=== PATIENT | male | born 1960 | race Caucasian/White ===

== ENCOUNTER 2020-10-11 13:24 | Observation (INO) | payer MEDICARE ==
[2020-10-11] MEDS ORDERED: Sodium Chloride 0.9% 1,000 ML IV ONE (13:43)
[2020-10-11] MEDS ORDERED: Pantoprazole 40 MG Vial IVPUSH ONE (13:43)
[2020-10-11 14:14] LABS: CHLORIDE,CL 88 mmol/L (98-107); SODIUM,NA 131 mmol/L (136-145)
[2020-10-11 14:17] LABS: ANION GAP 10.4 mmol/L (5-15)
--- NOTE | 2020-10-11 14:36 | CR ---
[id number] RAD/RAD Chest PA And Lateral EXAM: FRONTAL AND LATERAL CHEST INDICATION: CHEST PAIN. COMPARISON: June 19, 2018. DISCUSSION: Moderate consolidation throughout the right lung is new relative to June 19, 2018. Small right pleural effusion. COPD. No left-sided infiltrates are identified. Normal heart size. IMPRESSION: 1. Development of moderate infiltrates throughout right lung. Frantz Bettencourt MD 10/11/20 [id number] Thank you for allowing us to participate in the care of your patient.
[2020-10-11] MEDS ORDERED: Iopamidol 612 MG/ML 100 ML Bottle IVPUSH ONE (14:55)
--- NOTE | 2020-10-11 16:11 | CT ---
[id number] CT/CTA Chest EXAM: CT ANGIOGRAM CHEST INDICATION: SHORTNESS OF BREATH, INCREASED OXYGEN NEED. COMPARISON: June 19, 2018. DISCUSSION: The pulmonary arteries are normal in appearance with no emboli identified. Underlying COPD with bronchitis and apical predominant moderate emphysema. Areas of septal thickening, consolidation and groundglass opacification throughout the right lung which are most prominent in the right middle and lower lobes. Areas of rounded/nodular consolidation versus pulmonary nodules in the apical right lower lobe measuring up to 29 x 27 mm and in the right upper lobe measuring up to 27 and 23 mm. Continued follow-up is suggested to further evaluate for neoplasm. Normal heart size. No pleural or pericardial effusions. No thoracic adenopathy. Atherosclerotic plaque is noted in the aorta and its major branches including the coronary arteries. These changes result in significant stenosis IMPRESSION: 1. Negative for pulmonary embolism. 2. Consolidation, septal thickening and groundglass opacification scattered throughout the right lung, favor infectious or inflammatory process. There are scattered nodular airspace opacities which could also be infectious/inflammatory or neoplastic. A follow-up examination is suggested in 6-8 weeks for further clarification. Frantz Bettencourt MD 10/11/20 [id number] Thank you for allowing us to participate in the care of your patient.
[2020-10-11] MEDS ORDERED: Piperacillin/Tazobactam 4.5 GM in Sodium Chloride 0.9% 100 ML IV ONE (16:14)
[2020-10-11 16:19] LABS: BICARBONATE,ARTERIAL 30 mmol/L (21-28); PCO2 ARTERIAL 43 mmHG (35-48)
--- NOTE | 2020-10-11 16:19 | CT ---
[id number] CT/CT Abdomen Pelvis W IV EXAM: ABDOMEN AND PELVIS CT WITH CONTRAST INDICATION: ABDOMINAL PAIN, GI BLEEDING, ON COUMADIN. COMPARISON: March 12, 2018. DISCUSSION: Airspace consolidation in the right lung base as detailed on a dedicated CT angiogram of the chest. Small bilateral inguinal hernias containing only fat on the left and a segment of unobstructed bowel on the right. There are numerous diverticula of the colon without evidence of diverticulitis. Extensive atherosclerotic plaque in the aorta and its major branches evidence of previous aortobifemoral bypass. The distal aspect of the left bypass limb is dilated and measures up to 37 mm and increase from the previous of 25 mm. The abdominal aorta measures up to 53 mm in diameter and is similar to the prior study. The liver, gallbladder, spleen, pancreas, adrenal glands, kidneys, small bowel, and the appendix are normal in appearance. No adenopathy, free air free fluid. The osseous structures are unremarkable. IMPRESSION: 1. 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 Frantz Bettencourt MD 10/11/20 [id number] Thank you for allowing us to participate in the care of your patient.
[2020-10-11 16:20] LABS: BASE EXCESS ARTERIAL 6 mmol/L ((-2)-(+3))
[2020-10-11 16:21] LABS: PO2 ARTERIAL 42 mmHG (83-108)
--- NOTE | 2020-10-11 17:21 | EDM.PDOC ---
ED HPI GENERAL MEDICAL PROBLEM - General Chief Complaint: Respiratory Problem Stated Complaint: SOB Time Seen by Provider: 10/11/20 13:46 Source of Information: Reports: Patient, EMS History Limitations: Reports: No Limitations - History of Present Illness INITIAL COMMENTS - FREE TEXT/NARRATIVE: Patient presents to the ED for increasing shortness of breath, for the last two days. He is oxygen dependent and did have a bout of chest pain yesterday but gone now. He has been coughing up blood tinged sputum for about a week. Is on coumadin and plavix. He noted black tarry stools for the last 1-2 days and was told to come in. No abdominal pain. Shortness of breath like usual, possibly a slight bit worse. Eating and drinking well. no fevers. no concerns for covid. Has some Gi bleeding a few weeks ago, never had it evaluated. - Related Data Allergies Allergy/AdvReac Type Severity Reaction Status Date / Time No Known Allergies Allergy Verified 10/11/20 14:46 Home Meds: Home Meds Warfarin Sodium [Jantoven] 1 tab PO ASDIRECTED 03/11/18 [History] Magnesium Oxide 500 mg PO DAILY 04/03/18 [History] Nitroglycerin [Nitrostat] 0.4 mg SL ASDIRECTED PRN 04/03/18 [History] Potassium Chloride [K-Tab] 10 meq PO DAILY 04/03/18 [History] atorvaSTATin Calcium [Lipitor] 40 mg PO DAILY 04/03/18 [History] Acetaminophen 650 mg PO Q4H PRN 10/11/20 [History] Albuterol/Ipratropium [Combivent Respimat] 1 puff IH QID 10/11/20 [History] Budesonide [Pulmicort] 0.5 mg IH BID 10/11/20 [History] Bumetanide [Bumex] 1 mg PO DAILY 10/11/20 [History] Cholecalciferol (Vitamin D3) [Vitamin D3] 1,000 unit PO DAILY 10/11/20 [History] Clopidogrel Bisulfate [Plavix] 75 mg PO DAILY 10/11/20 [History] Pantoprazole Sodium [Protonix] 40 mg PO DAILY 10/11/20 [History] carvediloL [Coreg] 3.125 mg PO BID 10/11/20 [History] Social & Family History - Tobacco Use Tobacco Use Status *Q: Former Tobacco User - Alcohol Use Alcohol Use History: Yes Alcohol Use in Last Twelve Months: Yes Alcohol Use Frequency: Daily ED ROS GENERAL - Review of Systems Review Of Systems: See Below Constitutional: Reports: Malaise, Fatigue HEENT: Reports: No Symptoms. Denies: Eye Pain, Sinus Problem, Vertigo Respiratory: Reports: Shortness of Breath, Cough, Sputum, Hemoptysis Cardiovascular: Reports: Chest Pain (yesterday) Endocrine: Reports: No Symptoms GI/Abdominal: Reports: Black Stool, Decreased Appetite. Denies: Abdominal Pain, Nausea, Vomiting : Reports: No Symptoms Musculoskeletal: Reports: No Symptoms Skin: Reports: No Symptoms Neurological: Reports: No Symptoms Psychiatric: Reports: No Symptoms Hematologic/Lymphatic: Reports: No Symptoms ED EXAM, GENERAL - Physical Exam Exam: See Below Exam Limited By: No Limitations General Appearance: Alert, Mild Distress (appears ill, pale) Eye Exam: Bilateral Eye: EOMI, PERRL Ears: Normal External Exam Nose: Normal Inspection, Normal Mucosa Throat/Mouth: Normal Inspection, Normal Lips, Normal Oropharynx, Normal Voice Head: Atraumatic Neck: Normal Inspection, Supple Respiratory/Chest: Respiratory Distress, Decreased Breath Sounds, Crackles (right), Accessory Muscle Use, Prolonged Expiration Cardiovascular: Regular Rate, Rhythm, No Murmur, Systolic Murmur GI/Abdominal: Normal Bowel Sounds, Soft, Non-Tender, Other (attempt for occult stool, no developer in the hospital) Extremities: Normal Inspection, Normal Range of Motion Neurological: Alert, Oriented, CN II-XII Intact, Normal Cognition, No Motor/Sensory Deficits Psychiatric: Normal Affect #1 Interpretation EKG Date: 10/11/20 Time: 13:40 Rhythm: NSR [place]: Normal QRS: RBBB ST-T: Normal QT: Normal Course - Vital Signs Last Recorded V/S: Last Vital Signs Temp 37.1 C 10/11/20 13:30 Pulse 86 10/11/20 17:26 Resp 16 10/11/20 17:26 BP 128/80 10/11/20 17:26 Pulse Ox 88 L 10/11/20 17:26 - Orders/Labs/Meds Orders: Active Orders 24 hr Category Date Time Status Admission Status [Patient Status] [ADT] Routine ADT 10/11/20 17:24 Active Cardiac Monitoring [RC] . DIRECTED Care 10/11/20 13:43 Active EKG 12 Lead [EKG Documentation Completion] [RC] STAT Care 10/11/20 13:42 Active CULTURE BLOOD [BC] Stat Lab 10/11/20 17:02 Results CULTURE BLOOD [BC] Stat Lab 10/11/20 17:06 Received LACTIC ACID [CHEM] Stat Lab 10/11/20 17:02 Received Blood Culture x2 Reflex Set [OM.PC] Stat Oth 10/11/20 16:14 Ordered Labs: Laboratory Tests 10/11/20 10/11/20 10/11/20 Range/Units 13:55 13:55 13:55 WBC 8.8 (4.0-10.0) x10^3/uL RBC 3.07 L (4.5-6.0) x10^6/uL Hgb 9.1 L D (14.0-18.0) g/dL Hct 27.0 L (40.0-52.0) % MCV 87.9 D (78.0-93.0) fL MCH 29.6 (26.0-32.0) pg MCHC 33.7 (32.0-36.0) g/dL RDW Coeff of Neel 14.9 (10.0-15.0) % Plt Count 271 D (130-400) x10^3/uL Add Manual Diff Yes Neutrophils % (Manual) 84 H (50-80) % Lymphocytes % (Manual) 2 L (25-50) % Reactive Lymphs % 1 H (0) % Monocytes % (Manual) 11 (2-11) % Eosinophils % (Manual) 1 (0-4) % Basophils % (Manual) 1 (0-1) % Platelet Estimate Adequate Polychromasia Rare ABG pH (7.35-7.45) pH ABG pCO2 (35-48) mmHG ABG pO2 (83-108) mmHG ABG HCO3 (21-28) mmol/L ABG Total CO2 (22-29) mmol/L ABG O2 Content (94-98) % ABG Base Excess ((-2)-(+3)) mmol/L FiO2 Sodium 131 L (136-145) mmol/L Potassium 3.4 L (3.5-5.1) mmol/L Chloride 88 L (98-107) mmol/L Carbon Dioxide 36 H (21-32) mmol/L Anion Gap 10.4 (5-15) mmol/L BUN 14 D (7-18) mg/dL Creatinine 1.1 (0.70-1.30) mg/dL Est Cr Clr Drug Dosing TNP Estimated GFR (MDRD) > 60 Glucose 104 H (70-99) mg/dL Calcium 8.7 (8.5-10.1) mg/dL Troponin I High Sens 8 (<=76) ng/L SARS CoV-2 RNA Rapid HERBER (NEGATIVE) 10/11/20 10/11/20 Range/Units 15:09 16:36 WBC (4.0-10.0) x10^3/uL RBC (4.5-6.0) x10^6/uL Hgb (14.0-18.0) g/dL Hct (40.0-52.0) % MCV (78.0-93.0) fL MCH (26.0-32.0) pg MCHC (32.0-36.0) g/dL RDW Coeff of Neel (10.0-15.0) % Plt Count (130-400) x10^3/uL Add Manual Diff Neutrophils % (Manual) (50-80) % Lymphocytes % (Manual) (25-50) % Reactive Lymphs % (0) % Monocytes % (Manual) (2-11) % Eosinophils % (Manual) (0-4) % Basophils % (Manual) (0-1) % Platelet Estimate Polychromasia ABG pH 7.45 (7.35-7.45) pH ABG pCO2 43 (35-48) mmHG ABG pO2 42 L* (83-108) mmHG ABG HCO3 30 H (21-28) mmol/L ABG Total CO2 30 H (22-29) mmol/L ABG O2 Content 79 L (94-98) % ABG Base Excess 6 H ((-2)-(+3)) mmol/L FiO2 0.36 Sodium (136-145) mmol/L Potassium (3.5-5.1) mmol/L Chloride (98-107) mmol/L Carbon Dioxide (21-32) mmol/L Anion Gap (5-15) mmol/L BUN (7-18) mg/dL Creatinine (0.70-1.30) mg/dL Est Cr Clr Drug Dosing Estimated GFR (MDRD) Glucose (70-99) mg/dL Calcium (8.5-10.1) mg/dL Troponin I High Sens (<=76) ng/L SARS CoV-2 RNA Rapid HERBER Negative (NEGATIVE) Labs done at [facility] today include an INR of 2.7, urine with trace protein. otherwise negative Meds: Medications Discontinued Medications Generic Name Dose Route Start Last Admin Trade Name Freq PRN Reason Stop Dose Admin Sodium Chloride 1,000 mls @ 999 mls/hr 10/11/20 13:43 10/11/20 14:11 Normal Saline IV 10/11/20 14:43 999 mls/hr ONETIME ONE Administration Piperacillin Sod/Tazobactam 100 mls @ 200 mls/hr 10/11/20 16:14 10/11/20 17:14 Sod 4.5 gm/ Sodium Chloride IV 10/11/20 16:43 200 mls/hr STAT ONE Administration Iopamidol 100 ml 10/11/20 14:55 10/11/20 15:00 Iopamidol 612 Mg/Ml 100 Ml Bottle IVPUSH 10/11/20 14:56 100 ml ONETIME ONE Administration Pantoprazole Sodium 80 mg 10/11/20 13:43 10/11/20 14:11 Pantoprazole 40 Mg Vial IVPUSH 10/11/20 13:44 80 mg ONETIME ONE Administration - Radiology Interpretation Free Text/Narrative:: chest x-raywith moderate infiltrates right lung. CTA chest without pulmonary embolism, but with consolidation, septal thickening and groundglass opacifications throughout the right lung. Follow up in 6-8 weeks advised to rule of malignant process. interpreted by radiology - Re-Assessments/Exams Free Text/Narrative Re-Assessment/Exam: Patient O2 continues to be low per nursing. No change with non breather. sats of 60%, ABG ordered, PAo2 low on ABG, now noted no oxygen on for the patient. added 5lpm and is doing better, increased work of breathing. blood cultures x 2, covid, labs, chest x-ray, abdominal ct with contrast. No bleeding in the ED. Protonix 80 mg IVp, zosyn ordered for antibiotics after cultures. Was given a liter of IV fluids. 10/11/20 17:41 Patient has not had any bloody or black stools. Discussed bipap, doing ok. Ct of chest reveals right sided pneumonia. NO acute abdominal process. CAlled [facility] for transfer due to blood thinner x 2, gi bleeding and pneumonia. They do not have beds today, ask to hold him overnight. Does not want to go to [facility]. Will start protonix drip, continue antibiotics and admit for observation. Departure - Departure Time of Disposition: 17:22 Disposition: Refer to Observation Clinical Impression: Pneumonia, GI bleeding Respiratory failure Qualifiers: Chronicity: acute Respiratory failure complication: hypoxia and hypercapnia Qualified Code(s): J96.01 - Acute respiratory failure with hypoxia - Discharge Information *PRESCRIPTION DRUG MONITORING PROGRAM REVIEWED*: Not Applicable *COPY OF PRESCRIPTION DRUG MONITORING REPORT IN PATIENT BOBBY: Not Applicable Referrals: Palma Benjamin MD [Primary Care Provider] - Forms: ED Department Discharge Additional Instructions: Use this visit as H & P for admission Sepsis Event Note (ED) - Evaluation Sepsis Screening Result: No Definite Risk - Focused Exam Vital Signs: Vital Signs Temp Pulse Resp BP Pulse Ox 10/11/20 17:26 86 16 128/80 88 L 10/11/20 16:45 98 18 129/69 87 L 10/11/20 16:00 98 18 143/72 H 92 L 10/11/20 15:25 95 20 128/78 87 L 10/11/20 14:50 98 20 143/75 H 90 L 10/11/20 14:05 90 20 142/72 H 89 L 10/11/20 13:30 37.1 C 89 40 H 127/78 91 L - My Orders Last 24 Hours: My Active Orders 10/11/20 13:42 EKG 12 Lead [EKG Documentation Completion] [RC] STAT 10/11/20 13:43 Cardiac Monitoring [RC] . DIRECTED 10/11/20 16:14 Blood Culture x2 Reflex Set [OM.PC] Stat 10/11/20 17:02 CULTURE BLOOD [BC] Stat LACTIC ACID [CHEM] Stat 10/11/20 17:06 CULTURE BLOOD [BC] Stat 10/11/20 17:24 Admission Status [Patient Status] [ADT] Routine - Assessment/Plan Last 24 Hours: My Active Orders 10/11/20 13:42 EKG 12 Lead [EKG Documentation Completion] [RC] STAT 10/11/20 13:43 Cardiac Monitoring [RC] . DIRECTED 10/11/20 16:14 Blood Culture x2 Reflex Set [OM.PC] Stat 10/11/20 17:02 CULTURE BLOOD [BC] Stat LACTIC ACID [CHEM] Stat 10/11/20 17:06 CULTURE BLOOD [BC] Stat 10/11/20 17:24 Admission Status [Patient Status] [ADT] Routine
[2020-10-11] MEDS ORDERED: Docusate Sodium 100 MG Cap PO PRN (18:13)
[2020-10-11] MEDS ORDERED: Ondansetron 4 MG Tab.DIS PO PRN (18:13)
[2020-10-11] MEDS ORDERED: Acetaminophen/HYDROcodone 325-5 MG Tab PO PRN (18:13)
[2020-10-11] MEDS ORDERED: Piperacillin/Tazobactam 4.5 GM in Sodium Chloride 0.9% 100 ML IV SCH (18:30)
[2020-10-11] MEDS ORDERED: Pantoprazole 80 MG in Sodium Chloride 0.9% 100 ML IV SCH (18:30)
[2020-10-11] MEDS: Acetaminophen 325 MG Tab PO PRN (19:15)
[2020-10-11] MEDS: Carvedilol 3.125 MG Tab PO SCH (19:16)
[2020-10-11] MEDS: Budesonide 0.5 MG/2 ML Neb Susp INH SCH ×2 (19:17→19:19)
[2020-10-11] MEDS: Pantoprazole 40 MG in Sodium Chloride 0.9% 100 ML IV SCH (19:27)
[2020-10-11] MEDS: Albuterol 0.083% 2.5 MG/3 ML Neb Soln NEB PRN (22:36)
[2020-10-12] MEDS: Piperacillin/Tazobactam 3.375 GM in Sodium Chloride 0.9% 100 ML IV SCH ×4 (00:02→23:46)
[2020-10-12] MEDS: Pantoprazole 40 MG in Sodium Chloride 0.9% 100 ML IV SCH ×4 (00:30→16:05)
[2020-10-12] MEDS: Albuterol 0.083% 2.5 MG/3 ML Neb Soln NEB PRN ×2 (02:06→10:28)
[2020-10-12] MEDS: Budesonide 0.5 MG/2 ML Neb Susp INH SCH ×2 (06:16→19:37)
[2020-10-12 07:09] LABS: PCO2 ARTERIAL 53 mmHG (35-48)
[2020-10-12 07:10] LABS: BASE EXCESS ARTERIAL 8 mmol/L ((-2)-(+3)); BICARBONATE,ARTERIAL 33 mmol/L (21-28); PO2 ARTERIAL 56 mmHG (83-108)
[2020-10-12 07:17] LABS: CHLORIDE,CL 93 mmol/L (98-107); SODIUM,NA 134 mmol/L (136-145)
[2020-10-12 07:19] LABS: ANION GAP 10.2 mmol/L (5-15)
[2020-10-12] MEDS ORDERED: Sodium Chloride 0.9% with KCl 1,000 ML IV SCH (08:00)
[2020-10-12] MEDS: Carvedilol 3.125 MG Tab PO SCH ×2 (08:36→19:37)
[2020-10-12] MEDS: Magnesium Oxide 400 MG Tab PO SCH (08:37)
[2020-10-12] MEDS: Potassium Chloride 10 MEQ Tab.ER PO SCH (08:37)
[2020-10-12] MEDS: atorvaSTATin 40 MG Tab PO SCH (08:37)
--- NOTE | 2020-10-12 08:49 | PCM.PN ---
- General Info Date of Service: 10/12/20 Admission Dx/Problem (Free Text): right sided pneumonia, gi bleeding on blood thinners, hypoxia acute on chronic Subjective Update: Patient is up eating, continues to have increased oxygen need, Feeling a bit better. Continues with blood in the sputum. Doing his nebulizers. No bowel movement since prior to arrival. No pain. Thinks he is feeling a little better. Functional Status: Reports: Pain Controlled, Tolerating Diet, Ambulating, Incentive Spirometry - Review of Systems General: Reports: Fatigue HEENT: Reports: No Symptoms Pulmonary: Reports: Shortness of Breath, Cough, Sputum, Hemoptysis (unchanged) Cardiovascular: Reports: Dyspnea on Exertion Gastrointestinal: Reports: No Symptoms. Denies: Diarrhea, Hematochezia, Nausea, Vomiting Genitourinary: Reports: No Symptoms Musculoskeletal: Reports: No Symptoms Skin: Reports: No Symptoms Neurological: Reports: No Symptoms - Patient Data Vitals - Most Recent: Last Vital Signs Temp 36.4 C 10/12/20 05:25 Pulse 83 10/12/20 08:36 Resp 21 H 10/12/20 05:25 BP 137/77 10/12/20 08:36 Pulse Ox 95 10/12/20 05:25 Weight - Most Recent: 70.8 kg I&O - Last 24 Hours: Intake & Output 10/11/20 10/12/20 10/12/20 22:59 06:59 14:59 Intake Total 300 Balance 300 Lab Results Last 24 Hours: Laboratory Results - last 24 hr 10/11/20 10/11/20 10/11/20 Range/Units 13:55 13:55 13:55 WBC 8.8 (4.0-10.0) x10^3/uL RBC 3.07 L (4.5-6.0) x10^6/uL Hgb 9.1 L D (14.0-18.0) g/dL Hct 27.0 L (40.0-52.0) % MCV 87.9 D (78.0-93.0) fL MCH 29.6 (26.0-32.0) pg MCHC 33.7 (32.0-36.0) g/dL RDW Coeff of Neel 14.9 (10.0-15.0) % Plt Count 271 D (130-400) x10^3/uL Neut % (Auto) (50.0-80.0) % Lymph % (Auto) (25.0-50.0) % Graham % (Auto) (2.0-11.0) % Eos % (Auto) (0.0-4.0) % Baso % (Auto) (0.2-1.2) % Add Manual Diff Yes Neutrophils % (Manual) 84 H (50-80) % Lymphocytes % (Manual) 2 L (25-50) % Reactive Lymphs % 1 H (0) % Monocytes % (Manual) 11 (2-11) % Eosinophils % (Manual) 1 (0-4) % Basophils % (Manual) 1 (0-1) % Platelet Estimate Adequate Polychromasia Rare ABG pH (7.35-7.45) pH ABG pCO2 (35-48) mmHG ABG pO2 (83-108) mmHG ABG HCO3 (21-28) mmol/L ABG Total CO2 (22-29) mmol/L ABG O2 Content (94-98) % ABG Base Excess ((-2)-(+3)) mmol/L FiO2 Sodium 131 L (136-145) mmol/L Potassium 3.4 L (3.5-5.1) mmol/L Chloride 88 L (98-107) mmol/L Carbon Dioxide 36 H (21-32) mmol/L Anion Gap 10.4 (5-15) mmol/L BUN 14 D (7-18) mg/dL Creatinine 1.1 (0.70-1.30) mg/dL Est Cr Clr Drug Dosing TNP Estimated GFR (MDRD) > 60 Glucose 104 H (70-99) mg/dL Lactic Acid (0.4-2.0) mmol/L Calcium 8.7 (8.5-10.1) mg/dL Troponin I High Sens 8 (<=76) ng/L SARS CoV-2 RNA Rapid HERBER (NEGATIVE) 10/11/20 10/11/20 10/11/20 Range/Units 15:09 16:36 17:02 WBC (4.0-10.0) x10^3/uL RBC (4.5-6.0) x10^6/uL Hgb (14.0-18.0) g/dL Hct (40.0-52.0) % MCV (78.0-93.0) fL MCH (26.0-32.0) pg MCHC (32.0-36.0) g/dL RDW Coeff of Neel (10.0-15.0) % Plt Count (130-400) x10^3/uL Neut % (Auto) (50.0-80.0) % Lymph % (Auto) (25.0-50.0) % Graham % (Auto) (2.0-11.0) % Eos % (Auto) (0.0-4.0) % Baso % (Auto) (0.2-1.2) % Add Manual Diff Neutrophils % (Manual) (50-80) % Lymphocytes % (Manual) (25-50) % Reactive Lymphs % (0) % Monocytes % (Manual) (2-11) % Eosinophils % (Manual) (0-4) % Basophils % (Manual) (0-1) % Platelet Estimate Polychromasia ABG pH 7.45 (7.35-7.45) pH ABG pCO2 43 (35-48) mmHG ABG pO2 42 L* (83-108) mmHG ABG HCO3 30 H (21-28) mmol/L ABG Total CO2 30 H (22-29) mmol/L ABG O2 Content 79 L (94-98) % ABG Base Excess 6 H ((-2)-(+3)) mmol/L FiO2 0.36 Sodium (136-145) mmol/L Potassium (3.5-5.1) mmol/L Chloride (98-107) mmol/L Carbon Dioxide (21-32) mmol/L Anion Gap (5-15) mmol/L BUN (7-18) mg/dL Creatinine (0.70-1.30) mg/dL Est Cr Clr Drug Dosing Estimated GFR (MDRD) Glucose (70-99) mg/dL Lactic Acid 2.0 (0.4-2.0) mmol/L Calcium (8.5-10.1) mg/dL Troponin I High Sens (<=76) ng/L SARS CoV-2 RNA Rapid HERBER Negative (NEGATIVE) 10/12/20 10/12/20 10/12/20 Range/Units 06:45 06:45 06:50 WBC 7.7 (4.0-10.0) x10^3/uL RBC 2.79 L (4.5-6.0) x10^6/uL Hgb 8.3 L (14.0-18.0) g/dL Hct 25.4 L (40.0-52.0) % MCV 91.0 D (78.0-93.0) fL MCH 29.7 (26.0-32.0) pg MCHC 32.7 (32.0-36.0) g/dL RDW Coeff of Neel 15.0 (10.0-15.0) % Plt Count 265 (130-400) x10^3/uL Neut % (Auto) 74.1 (50.0-80.0) % Lymph % (Auto) 11.7 L (25.0-50.0) % Graham % (Auto) 10.4 (2.0-11.0) % Eos % (Auto) 1.6 (0.0-4.0) % Baso % (Auto) 2.2 H (0.2-1.2) % Add Manual Diff Neutrophils % (Manual) (50-80) % Lymphocytes % (Manual) (25-50) % Reactive Lymphs % (0) % Monocytes % (Manual) (2-11) % Eosinophils % (Manual) (0-4) % Basophils % (Manual) (0-1) % Platelet Estimate Polychromasia ABG pH 7.40 (7.35-7.45) pH ABG pCO2 53 H (35-48) mmHG ABG pO2 56 L* (83-108) mmHG ABG HCO3 33 H (21-28) mmol/L ABG Total CO2 (22-29) mmol/L ABG O2 Content 88 L (94-98) % ABG Base Excess 8 H ((-2)-(+3)) mmol/L FiO2 30.00 Sodium 134 L (136-145) mmol/L Potassium 3.2 L (3.5-5.1) mmol/L Chloride 93 L (98-107) mmol/L Carbon Dioxide 34 H (21-32) mmol/L Anion Gap 10.2 (5-15) mmol/L BUN 13 (7-18) mg/dL Creatinine 1.2 (0.70-1.30) mg/dL Est Cr Clr Drug Dosing 64.74 Estimated GFR (MDRD) > 60 Glucose 116 H (70-99) mg/dL Lactic Acid (0.4-2.0) mmol/L Calcium 8.3 L (8.5-10.1) mg/dL Troponin I High Sens (<=76) ng/L SARS CoV-2 RNA Rapid HERBER (NEGATIVE) [facility] Results Last 24 Hours: Microbiology 10/11/20 17:02 Anaerobic Blood Culture - Final Blood - Venous 10/11/20 14:25 Gram Stain - Final Sputum - Expectorated Sputum Culture - Final Med Orders - Current: Current Medications Acetaminophen (Acetaminophen 325 Mg Tab) 650 mg PO Q4H PRN PRN Reason: Pain (Mild 1-3)/fever Last Admin: 10/11/20 19:15 Dose: 650 mg Documented by: Hydrocodone Bitart/Acetaminophen (Acetaminophen/Hydrocodone 325-5 Mg Tab) 1 tab PO Q4H PRN PRN Reason: Pain (moderate 4-6) Albuterol (Albuterol 0.083% 2.5 Mg/3 Ml Neb Soln) 2.5 mg NEB Q2H PRN PRN Reason: Dyspnea Last Admin: 10/12/20 02:06 Dose: 2.5 mg Documented by: Albuterol/Ipratropium (Albuterol/Ipratropium 3.0-0.5 Mg/3 Ml Neb Soln) 3 ml NEB Q4H PRN PRN Reason: dyspnea/wheezing Atorvastatin Calcium (Atorvastatin 40 Mg Tab) 40 mg PO DAILY [facility] Last Admin: 10/12/20 08:37 Dose: 40 mg Documented by: Benzonatate (Benzonatate 100 Mg Cap) 100 mg PO TID PRN PRN Reason: Cough Last Admin: 10/12/20 00:00 Dose: 100 mg Documented by: Budesonide (Budesonide 0.5 Mg/2 Ml Neb Susp) 0.5 mg INH BIDRT [facility] Last Admin: 10/12/20 06:16 Dose: 0.5 mg Documented by: Carvedilol (Carvedilol 3.125 Mg Tab) 3.125 mg PO BID [facility] Last Admin: 10/12/20 08:36 Dose: 3.125 mg Documented by: Docusate Sodium (Docusate Sodium 100 Mg Cap) 100 mg PO BID PRN PRN Reason: Constipation Piperacillin Sod/Tazobactam (Sod 3.375 gm/ Sodium Chloride) 100 mls @ 25 mls/hr IV Q8H [facility] Last Admin: 10/12/20 08:37 Dose: 25 mls/hr Documented by: Pantoprazole Sodium 40 mg/ (Sodium Chloride) 100 mls @ 20 mls/hr IV .CONTINUOUS [facility] Last Admin: 10/12/20 05:36 Dose: 20 mls/hr Documented by: Potassium Chloride/Sodium Chloride (Normal Saline With 40 Meq Kcl) 1,000 mls @ 200 mls/hr IV ASDIRECTED [facility] Magnesium Oxide (Magnesium Oxide 400 Mg Tab) 400 mg PO DAILY [facility] Last Admin: 10/12/20 08:37 Dose: 400 mg Documented by: Ondansetron HCl (Ondansetron 4 Mg Tab.Dis) 4 mg PO Q4H PRN PRN Reason: nausea, able to take PO Potassium Chloride (Potassium Chloride 10 Meq Tab.Er) 10 meq PO DAILY [facility] Last Admin: 10/12/20 08:37 Dose: 10 meq Documented by: Discontinued Medications Sodium Chloride (Normal Saline) 1,000 mls @ 999 mls/hr IV ONETIME ONE Stop: 10/11/20 14:43 Last Admin: 10/11/20 14:11 Dose: 999 mls/hr Documented by: Piperacillin Sod/Tazobactam (Sod 4.5 gm/ Sodium Chloride) 100 mls @ 200 mls/hr IV STAT ONE Stop: 10/11/20 16:43 Last Admin: 10/11/20 17:14 Dose: 200 mls/hr Documented by: Piperacillin Sod/Tazobactam (Sod 4.5 gm/ Sodium Chloride) 100 mls @ 25 mls/hr IV Q8H [facility] Last Admin: 10/11/20 19:08 Dose: Not Given Documented by: Iopamidol (Iopamidol 612 Mg/Ml 100 Ml Bottle) 100 ml IVPUSH ONETIME ONE Stop: 10/11/20 14:56 Last Admin: 10/11/20 15:00 Dose: 100 ml Documented by: Pantoprazole Sodium (Pantoprazole 40 Mg Vial) 80 mg IVPUSH ONETIME ONE Stop: 10/11/20 13:44 Last Admin: 10/11/20 14:11 Dose: 80 mg Documented by: - Exam Quality Assessment: Supplemental Oxygen. No: DVT Prophylaxis (due to gi bleeding, SCD ordered) General: Alert, Oriented, Cooperative, No Acute Distress HEENT: Pupils Equal, Pupils Reactive, EOMI Neck: Supple, Trachea Midline Lungs: Decreased Breath Sounds (right side, unchanged from yesterday), Other (tachypnea) Cardiovascular: Regular Rate, Regular Rhythm GI/Abdominal Exam: Normal Bowel Sounds, Soft, Non-Tender Extremities: Normal Inspection, Normal Range of Motion, Non-Tender Neurological: No New Focal Deficit Psy/Mental Status: Alert, Normal Affect - Patient Data Lab Results Last 24 hrs: Laboratory Results - last 24 hr 10/11/20 10/11/20 10/11/20 Range/Units 13:55 13:55 13:55 WBC 8.8 (4.0-10.0) x10^3/uL RBC 3.07 L (4.5-6.0) x10^6/uL Hgb 9.1 L D (14.0-18.0) g/dL Hct 27.0 L (40.0-52.0) % MCV 87.9 D (78.0-93.0) fL MCH 29.6 (26.0-32.0) pg MCHC 33.7 (32.0-36.0) g/dL RDW Coeff of Neel 14.9 (10.0-15.0) % Plt Count 271 D (130-400) x10^3/uL Neut % (Auto) (50.0-80.0) % Lymph % (Auto) (25.0-50.0) % Graham % (Auto) (2.0-11.0) % Eos % (Auto) (0.0-4.0) % Baso % (Auto) (0.2-1.2) % Add Manual Diff Yes Neutrophils % (Manual) 84 H (50-80) % Lymphocytes % (Manual) 2 L (25-50) % Reactive Lymphs % 1 H (0) % Monocytes % (Manual) 11 (2-11) % Eosinophils % (Manual) 1 (0-4) % Basophils % (Manual) 1 (0-1) % Platelet Estimate Adequate Polychromasia Rare ABG pH (7.35-7.45) pH ABG pCO2 (35-48) mmHG ABG pO2 (83-108) mmHG ABG HCO3 (21-28) mmol/L ABG Total CO2 (22-29) mmol/L ABG O2 Content (94-98) % ABG Base Excess ((-2)-(+3)) mmol/L FiO2 Sodium 131 L (136-145) mmol/L Potassium 3.4 L (3.5-5.1) mmol/L Chloride 88 L (98-107) mmol/L Carbon Dioxide 36 H (21-32) mmol/L Anion Gap 10.4 (5-15) mmol/L BUN 14 D (7-18) mg/dL Creatinine 1.1 (0.70-1.30) mg/dL Est Cr Clr Drug Dosing TNP Estimated GFR (MDRD) > 60 Glucose 104 H (70-99) mg/dL Lactic Acid (0.4-2.0) mmol/L Calcium 8.7 (8.5-10.1) mg/dL Troponin I High Sens 8 (<=76) ng/L SARS CoV-2 RNA Rapid HERBER (NEGATIVE) 10/11/20 10/11/20 10/11/20 Range/Units 15:09 16:36 17:02 WBC (4.0-10.0) x10^3/uL RBC (4.5-6.0) x10^6/uL Hgb (14.0-18.0) g/dL Hct (40.0-52.0) % MCV (78.0-93.0) fL MCH (26.0-32.0) pg MCHC (32.0-36.0) g/dL RDW Coeff of Neel (10.0-15.0) % Plt Count (130-400) x10^3/uL Neut % (Auto) (50.0-80.0) % Lymph % (Auto) (25.0-50.0) % Graham % (Auto) (2.0-11.0) % Eos % (Auto) (0.0-4.0) % Baso % (Auto) (0.2-1.2) % Add Manual Diff Neutrophils % (Manual) (50-80) % Lymphocytes % (Manual) (25-50) % Reactive Lymphs % (0) % Monocytes % (Manual) (2-11) % Eosinophils % (Manual) (0-4) % Basophils % (Manual) (0-1) % Platelet Estimate Polychromasia ABG pH 7.45 (7.35-7.45) pH ABG pCO2 43 (35-48) mmHG ABG pO2 42 L* (83-108) mmHG ABG HCO3 30 H (21-28) mmol/L ABG Total CO2 30 H (22-29) mmol/L ABG O2 Content 79 L (94-98) % ABG Base Excess 6 H ((-2)-(+3)) mmol/L FiO2 0.36 Sodium (136-145) mmol/L Potassium (3.5-5.1) mmol/L Chloride (98-107) mmol/L Carbon Dioxide (21-32) mmol/L Anion Gap (5-15) mmol/L BUN (7-18) mg/dL Creatinine (0.70-1.30) mg/dL Est Cr Clr Drug Dosing Estimated GFR (MDRD) Glucose (70-99) mg/dL Lactic Acid 2.0 (0.4-2.0) mmol/L Calcium (8.5-10.1) mg/dL Troponin I High Sens (<=76) ng/L SARS CoV-2 RNA Rapid HERBER Negative (NEGATIVE) 10/12/20 10/12/20 10/12/20 Range/Units 06:45 06:45 06:50 WBC 7.7 (4.0-10.0) x10^3/uL RBC 2.79 L (4.5-6.0) x10^6/uL Hgb 8.3 L (14.0-18.0) g/dL Hct 25.4 L (40.0-52.0) % MCV 91.0 D (78.0-93.0) fL MCH 29.7 (26.0-32.0) pg MCHC 32.7 (32.0-36.0) g/dL RDW Coeff of Neel 15.0 (10.0-15.0) % Plt Count 265 (130-400) x10^3/uL Neut % (Auto) 74.1 (50.0-80.0) % Lymph % (Auto) 11.7 L (25.0-50.0) % Graham % (Auto) 10.4 (2.0-11.0) % Eos % (Auto) 1.6 (0.0-4.0) % Baso % (Auto) 2.2 H (0.2-1.2) % Add Manual Diff Neutrophils % (Manual) (50-80) % Lymphocytes % (Manual) (25-50) % Reactive Lymphs % (0) % Monocytes % (Manual) (2-11) % Eosinophils % (Manual) (0-4) % Basophils % (Manual) (0-1) % Platelet Estimate Polychromasia ABG pH 7.40 (7.35-7.45) pH ABG pCO2 53 H (35-48) mmHG ABG pO2 56 L* (83-108) mmHG ABG HCO3 33 H (21-28) mmol/L ABG Total CO2 (22-29) mmol/L ABG O2 Content 88 L (94-98) % ABG Base Excess 8 H ((-2)-(+3)) mmol/L FiO2 30.00 Sodium 134 L (136-145) mmol/L Potassium 3.2 L (3.5-5.1) mmol/L Chloride 93 L (98-107) mmol/L Carbon Dioxide 34 H (21-32) mmol/L Anion Gap 10.2 (5-15) mmol/L BUN 13 (7-18) mg/dL Creatinine 1.2 (0.70-1.30) mg/dL Est Cr Clr Drug Dosing 64.74 Estimated GFR (MDRD) > 60 Glucose 116 H (70-99) mg/dL Lactic Acid (0.4-2.0) mmol/L Calcium 8.3 L (8.5-10.1) mg/dL Troponin I High Sens (<=76) ng/L SARS CoV-2 RNA Rapid HERBER (NEGATIVE) Result Diagrams: 10/12/20 06:45 10/12/20 06:45 [facility] Results Last 24 hrs: Microbiology 10/11/20 17:02 Anaerobic Blood Culture - Final Blood - Venous 10/11/20 14:25 Gram Stain - Final Sputum - Expectorated Sputum Culture - Final Sepsis Event Note - Evaluation Sepsis Screening Result: No Definite Risk - Focused Exam Vital Signs: Vital Signs Temp Pulse Pulse Resp BP BP Pulse Ox 10/12/20 08:36 83 137/77 10/12/20 05:25 36.4 C 79 21 H 137/77 95 10/12/20 02:00 36.7 C 98 22 H 128/79 89 L 10/11/20 22:00 36.7 C 91 22 H 128/71 100 - Problem List & Annotations (1) GI bleeding SNOMED Code(s): 33694476 Code(s): K92.2 - GASTROINTESTINAL HEMORRHAGE, UNSPECIFIED Status: Acute Priority: High Current Visit: Yes (2) Pneumonia SNOMED Code(s): 428321625 Code(s): J18.9 - PNEUMONIA, UNSPECIFIED ORGANISM Status: Acute Priority: High Current Visit: Yes (3) Respiratory failure SNOMED Code(s): 502760964 Code(s): J96.90 - RESPIRATORY FAILURE, UNSP, UNSP W HYPOXIA OR HYPERCAPNIA Status: Acute Priority: Medium Current Visit: Yes Qualifiers: Chronicity: acute Respiratory failure complication: hypoxia and hypercapnia Qualified Code(s): J96.01 - Acute respiratory failure with hypoxia; J96.02 - Acute respiratory failure with hypercapnia (4) COPD (chronic obstructive pulmonary disease) SNOMED Code(s): 82659359 Code(s): J44.9 - CHRONIC OBSTRUCTIVE PULMONARY DISEASE, UNSPECIFIED Status: Acute Priority: Medium Current Visit: No Qualifiers: COPD type: unspecified COPD Qualified Code(s): J44.9 - Chronic obstructive pulmonary disease, unspecified - Problem List Review Problem List Initiated/Reviewed/Updated: Yes - My Orders Last 24 Hours: My Active Orders 10/11/20 13:43 Cardiac Monitoring [RC] 02,06,,,18,22 10/11/20 16:14 Blood Culture x2 Reflex Set [OM.PC] Stat 10/11/20 17:02 CULTURE BLOOD [BC] Stat 10/11/20 17:06 CULTURE BLOOD [BC] Stat 10/11/20 18:13 Patient Status [ADT] Routine Intake and Output [RC] ,18 Oxygen Therapy [RC] PRN Up ad Davina [RC] 08, VTE/DVT Education [RC] .PRN Vital Signs [RC] 02,,,,,22 Acetaminophen [TylenoL] 650 mg PO Q4H PRN Acetaminophen/HYDROcodone [[place] 325-5 MG] 1 tab PO Q4H PRN Albuterol [Proventil Neb Soln] 2.5 mg NEB Q2H PRN Albuterol/Ipratropium [DuoNeb 3.0-0.5 MG/3 ML] 3 ml NEB Q4H PRN Docusate Sodium [Colace] 100 mg PO BID PRN Ondansetron [Zofran ODT] 4 mg PO Q4H PRN VTE Pharmacological Contraindications [AST] Per Unit Routine Resuscitation Status Routine 10/11/20 18:14 Notify Provider Vital Signs [RC] .PRN 10/11/20 18:16 Sequential Compression Device [OM.PC] Per Unit Routine 10/11/20 18:18 Antiembolic Devices [RC] 08,20 RT Aerosol Therapy [RC] 07,10/11/20 18:23 Dietary Supplements [RC] 10,14 10/11/20 19:15 Pantoprazole [ProTONIX IV] 40 mg Sodium Chloride 0.9% [Normal Saline] 100 ml IV .CONTINUOUS 10/11/20 20:00 Budesonide [Pulmicort] 0.5 mg INH BIDRT carvediloL [Coreg] 3.125 mg PO BID 10/11/20 22:43 Benzonatate [Tessalon Perles] 100 mg PO TID PRN 10/12/20 00:00 Piperacillin/Tazobactam [Zosyn] 3.375 gm Sodium Chloride 0.9% [Normal Saline] 100 ml IV Q8H 10/12/20 08:00 Magnesium Oxide 400 mg PO DAILY Potassium Chloride [Klor-Con 10] 10 meq PO DAILY Sodium Chloride 0.9% with KCl [Normal Saline with 40 mEq KCl] 1,000 ml IV ASDIRECTED atorvaSTATin [Lipitor] 40 mg PO DAILY 10/13/20 05:11 TYPE AND SCREEN [BBK] AM - Assessment Assessment:: will continue antibiotics, encourage nebulizers. Watch for GI bleeding. Hemoglobin did drop one point since yesterday, but no new bleeding. Continues to have blood in the sputum. Patient is a daily drinker of alcohol, probably etiology of gastritis, gastric ulcer, possibility of neoplasm . Continue to hold blood thinner. Arrange for transfer to [place] when a bed is available. Needs pulmonoloy and GI/EGD - Plan Plan:: transfer to [facility], when bed is available,
[2020-10-12] MEDS: Benzonatate 100 MG Cap PO PRN ×3 (10:46→23:45)
[2020-10-12] MEDS: Albuterol/Ipratropium 3.0-0.5 MG/3 ML Neb Soln NEB PRN (16:27)
--- NOTE | 2020-10-12 16:32 | PCM.PN ---
- General Info Date of Service: 10/12/20 Admission Dx/Problem (Free Text): GI bleeding, hemoptysis, pneumonia Subjective Update: Patient continues to be stable, awaiting transfer to [facility] for EGD. pulmonology. He is breahing better, eating and drinking well. No bowel movement since admission Continues to have blood phlegm/sputum. no new complaints Functional Status: Reports: Pain Controlled, Tolerating Diet, Ambulating, Incentive Spirometry - Review of Systems General: Reports: No Symptoms HEENT: Reports: No Symptoms Pulmonary: Reports: Shortness of Breath, Cough, Sputum Cardiovascular: Reports: No Symptoms. Denies: Chest Pain Gastrointestinal: Reports: No Symptoms Genitourinary: Reports: No Symptoms - Patient Data Vitals - Most Recent: Last Vital Signs Temp 36.7 C 10/12/20 10:00 Pulse 86 10/12/20 10:00 Resp 20 10/12/20 10:00 BP 125/67 10/12/20 10:00 Pulse Ox 86 L 10/12/20 10:00 Weight - Most Recent: 70.8 kg I&O - Last 24 Hours: Intake & Output 10/12/20 10/12/20 10/12/20 06:59 14:59 22:59 Intake Total 300 240 Balance 300 240 Lab Results Last 24 Hours: Laboratory Results - last 24 hr 10/11/20 10/11/20 10/12/20 Range/Units 16:36 17:02 06:45 WBC 7.7 (4.0-10.0) x10^3/uL RBC 2.79 L (4.5-6.0) x10^6/uL Hgb 8.3 L (14.0-18.0) g/dL Hct 25.4 L (40.0-52.0) % MCV 91.0 D (78.0-93.0) fL MCH 29.7 (26.0-32.0) pg MCHC 32.7 (32.0-36.0) g/dL RDW Coeff of Neel 15.0 (10.0-15.0) % Plt Count 265 (130-400) x10^3/uL Neut % (Auto) 74.1 (50.0-80.0) % Lymph % (Auto) 11.7 L (25.0-50.0) % Gates % (Auto) 10.4 (2.0-11.0) % Eos % (Auto) 1.6 (0.0-4.0) % Baso % (Auto) 2.2 H (0.2-1.2) % ABG pH (7.35-7.45) pH ABG pCO2 (35-48) mmHG ABG pO2 (83-108) mmHG ABG HCO3 (21-28) mmol/L ABG O2 Content (94-98) % ABG Base Excess ((-2)-(+3)) mmol/L FiO2 Sodium (136-145) mmol/L Potassium (3.5-5.1) mmol/L Chloride (98-107) mmol/L Carbon Dioxide (21-32) mmol/L Anion Gap (5-15) mmol/L BUN (7-18) mg/dL Creatinine (0.70-1.30) mg/dL Est Cr Clr Drug Dosing mL/min Estimated GFR (MDRD) Glucose (70-99) mg/dL Lactic Acid 2.0 (0.4-2.0) mmol/L Calcium (8.5-10.1) mg/dL SARS CoV-2 RNA Rapid HERBER Negative (NEGATIVE) Blood Type Gel Antibody Screen 10/12/20 10/12/20 10/12/20 Range/Units 06:45 06:50 06:50 WBC (4.0-10.0) x10^3/uL RBC (4.5-6.0) x10^6/uL Hgb (14.0-18.0) g/dL Hct (40.0-52.0) % MCV (78.0-93.0) fL MCH (26.0-32.0) pg MCHC (32.0-36.0) g/dL RDW Coeff of Neel (10.0-15.0) % Plt Count (130-400) x10^3/uL Neut % (Auto) (50.0-80.0) % Lymph % (Auto) (25.0-50.0) % Gates % (Auto) (2.0-11.0) % Eos % (Auto) (0.0-4.0) % Baso % (Auto) (0.2-1.2) % ABG pH 7.40 (7.35-7.45) pH ABG pCO2 53 H (35-48) mmHG ABG pO2 56 L* (83-108) mmHG ABG HCO3 33 H (21-28) mmol/L ABG O2 Content 88 L (94-98) % ABG Base Excess 8 H ((-2)-(+3)) mmol/L FiO2 30.00 Sodium 134 L (136-145) mmol/L Potassium 3.2 L (3.5-5.1) mmol/L Chloride 93 L (98-107) mmol/L Carbon Dioxide 34 H (21-32) mmol/L Anion Gap 10.2 (5-15) mmol/L BUN 13 (7-18) mg/dL Creatinine 1.2 (0.70-1.30) mg/dL Est Cr Clr Drug Dosing 64.74 mL/min Estimated GFR (MDRD) > 60 Glucose 116 H (70-99) mg/dL Lactic Acid (0.4-2.0) mmol/L Calcium 8.3 L (8.5-10.1) mg/dL SARS CoV-2 RNA Rapid HERBER (NEGATIVE) Blood Type A POSITIVE Gel Antibody Screen Negative [facility] Results Last 24 Hours: Microbiology 10/11/20 17:02 Anaerobic Blood Culture - Final Blood - Venous 10/11/20 14:25 Gram Stain - Final Sputum - Expectorated Sputum Culture - Final Med Orders - Current: Current Medications Acetaminophen (Acetaminophen 325 Mg Tab) 650 mg PO Q4H PRN PRN Reason: Pain (Mild 1-3)/fever Last Admin: 10/11/20 19:15 Dose: 650 mg Documented by: Hydrocodone Bitart/Acetaminophen (Acetaminophen/Hydrocodone 325-5 Mg Tab) 1 tab PO Q4H PRN PRN Reason: Pain (moderate 4-6) Albuterol (Albuterol 0.083% 2.5 Mg/3 Ml Neb Soln) 2.5 mg NEB Q2H PRN PRN Reason: Dyspnea Last Admin: 10/12/20 10:28 Dose: 2.5 mg Documented by: Albuterol/Ipratropium (Albuterol/Ipratropium 3.0-0.5 Mg/3 Ml Neb Soln) 3 ml NEB Q4H PRN PRN Reason: dyspnea/wheezing Last Admin: 10/12/20 16:27 Dose: 3 ml Documented by: Atorvastatin Calcium (Atorvastatin 40 Mg Tab) 40 mg PO DAILY [facility] Last Admin: 10/12/20 08:37 Dose: 40 mg Documented by: Benzonatate (Benzonatate 100 Mg Cap) 100 mg PO TID PRN PRN Reason: Cough Last Admin: 10/12/20 10:46 Dose: 100 mg Documented by: Budesonide (Budesonide 0.5 Mg/2 Ml Neb Susp) 0.5 mg INH BIDRT [facility] Last Admin: 10/12/20 06:16 Dose: 0.5 mg Documented by: Carvedilol (Carvedilol 3.125 Mg Tab) 3.125 mg PO BID [facility] Last Admin: 10/12/20 08:36 Dose: 3.125 mg Documented by: Docusate Sodium (Docusate Sodium 100 Mg Cap) 100 mg PO BID PRN PRN Reason: Constipation Piperacillin Sod/Tazobactam (Sod 3.375 gm/ Sodium Chloride) 100 mls @ 25 mls/hr IV Q8H [facility] Last Admin: 10/12/20 08:37 Dose: 25 mls/hr Documented by: Pantoprazole Sodium 40 mg/ (Sodium Chloride) 100 mls @ 20 mls/hr IV .CONTINUOUS [facility] Last Admin: 10/12/20 16:05 Dose: 20 mls/hr Documented by: Potassium Chloride/Sodium Chloride (Normal Saline With 40 Meq Kcl) 1,000 mls @ 200 mls/hr IV ASDIRECTED [facility] Last Admin: 10/12/20 14:53 Dose: 200 mls/hr Documented by: Magnesium Oxide (Magnesium Oxide 400 Mg Tab) 400 mg PO DAILY [facility] Last Admin: 10/12/20 08:37 Dose: 400 mg Documented by: Ondansetron HCl (Ondansetron 4 Mg Tab.Dis) 4 mg PO Q4H PRN PRN Reason: nausea, able to take PO Potassium Chloride (Potassium Chloride 10 Meq Tab.Er) 10 meq PO DAILY [facility] Last Admin: 10/12/20 08:37 Dose: 10 meq Documented by: Discontinued Medications Sodium Chloride (Normal Saline) 1,000 mls @ 999 mls/hr IV ONETIME ONE Stop: 10/11/20 14:43 Last Admin: 10/11/20 14:11 Dose: 999 mls/hr Documented by: Piperacillin Sod/Tazobactam (Sod 4.5 gm/ Sodium Chloride) 100 mls @ 200 mls/hr IV STAT ONE Stop: 10/11/20 16:43 Last Admin: 10/11/20 17:14 Dose: 200 mls/hr Documented by: Piperacillin Sod/Tazobactam (Sod 4.5 gm/ Sodium Chloride) 100 mls @ 25 mls/hr IV Q8H [facility] Last Admin: 10/11/20 19:08 Dose: Not Given Documented by: Iopamidol (Iopamidol 612 Mg/Ml 100 Ml Bottle) 100 ml IVPUSH ONETIME ONE Stop: 10/11/20 14:56 Last Admin: 10/11/20 15:00 Dose: 100 ml Documented by: Pantoprazole Sodium (Pantoprazole 40 Mg Vial) 80 mg IVPUSH ONETIME ONE Stop: 10/11/20 13:44 Last Admin: 10/11/20 14:11 Dose: 80 mg Documented by: - Exam Quality Assessment: Supplemental Oxygen General: Alert, Oriented HEENT: Pupils Equal Lungs: Decreased Breath Sounds, Crackles (right side), Other (tachypnea) Cardiovascular: Tachycardia GI/Abdominal Exam: Normal Bowel Sounds Extremities: Normal Inspection - Patient Data Lab Results Last 24 hrs: Laboratory Results - last 24 hr 10/11/20 10/11/20 10/12/20 Range/Units 16:36 17:02 06:45 WBC 7.7 (4.0-10.0) x10^3/uL RBC 2.79 L (4.5-6.0) x10^6/uL Hgb 8.3 L (14.0-18.0) g/dL Hct 25.4 L (40.0-52.0) % MCV 91.0 D (78.0-93.0) fL MCH 29.7 (26.0-32.0) pg MCHC 32.7 (32.0-36.0) g/dL RDW Coeff of Neel 15.0 (10.0-15.0) % Plt Count 265 (130-400) x10^3/uL Neut % (Auto) 74.1 (50.0-80.0) % Lymph % (Auto) 11.7 L (25.0-50.0) % Gates % (Auto) 10.4 (2.0-11.0) % Eos % (Auto) 1.6 (0.0-4.0) % Baso % (Auto) 2.2 H (0.2-1.2) % ABG pH (7.35-7.45) pH ABG pCO2 (35-48) mmHG ABG pO2 (83-108) mmHG ABG HCO3 (21-28) mmol/L ABG O2 Content (94-98) % ABG Base Excess ((-2)-(+3)) mmol/L FiO2 Sodium (136-145) mmol/L Potassium (3.5-5.1) mmol/L Chloride (98-107) mmol/L Carbon Dioxide (21-32) mmol/L Anion Gap (5-15) mmol/L BUN (7-18) mg/dL Creatinine (0.70-1.30) mg/dL Est Cr Clr Drug Dosing mL/min Estimated GFR (MDRD) Glucose (70-99) mg/dL Lactic Acid 2.0 (0.4-2.0) mmol/L Calcium (8.5-10.1) mg/dL SARS CoV-2 RNA Rapid HERBER Negative (NEGATIVE) Blood Type Gel Antibody Screen 10/12/20 10/12/20 10/12/20 Range/Units 06:45 06:50 06:50 WBC (4.0-10.0) x10^3/uL RBC (4.5-6.0) x10^6/uL Hgb (14.0-18.0) g/dL Hct (40.0-52.0) % MCV (78.0-93.0) fL MCH (26.0-32.0) pg MCHC (32.0-36.0) g/dL RDW Coeff of Neel (10.0-15.0) % Plt Count (130-400) x10^3/uL Neut % (Auto) (50.0-80.0) % Lymph % (Auto) (25.0-50.0) % Gates % (Auto) (2.0-11.0) % Eos % (Auto) (0.0-4.0) % Baso % (Auto) (0.2-1.2) % ABG pH 7.40 (7.35-7.45) pH ABG pCO2 53 H (35-48) mmHG ABG pO2 56 L* (83-108) mmHG ABG HCO3 33 H (21-28) mmol/L ABG O2 Content 88 L (94-98) % ABG Base Excess 8 H ((-2)-(+3)) mmol/L FiO2 30.00 Sodium 134 L (136-145) mmol/L Potassium 3.2 L (3.5-5.1) mmol/L Chloride 93 L (98-107) mmol/L Carbon Dioxide 34 H (21-32) mmol/L Anion Gap 10.2 (5-15) mmol/L BUN 13 (7-18) mg/dL Creatinine 1.2 (0.70-1.30) mg/dL Est Cr Clr Drug Dosing 64.74 mL/min Estimated GFR (MDRD) > 60 Glucose 116 H (70-99) mg/dL Lactic Acid (0.4-2.0) mmol/L Calcium 8.3 L (8.5-10.1) mg/dL SARS CoV-2 RNA Rapid HERBER (NEGATIVE) Blood Type A POSITIVE Gel Antibody Screen Negative Result Diagrams: 10/12/20 06:45 10/12/20 06:45 [facility] Results Last 24 hrs: Microbiology 10/11/20 17:02 Anaerobic Blood Culture - Final Blood - Venous 10/11/20 14:25 Gram Stain - Final Sputum - Expectorated Sputum Culture - Final Sepsis Event Note - Evaluation Sepsis Screening Result: No Definite Risk - Focused Exam Vital Signs: Vital Signs Temp Pulse Pulse Resp BP BP Pulse Ox 10/12/20 10:00 36.7 C 86 20 125/67 86 L 10/12/20 08:36 83 137/77 10/12/20 05:25 36.4 C 79 21 H 137/77 95 - Problem List & Annotations (1) GI bleeding SNOMED Code(s): 61754686 Code(s): K92.2 - GASTROINTESTINAL HEMORRHAGE, UNSPECIFIED Status: Acute Priority: High Current Visit: Yes Qualifiers: GI bleed type/associated pathology: unspecified gastrointestinal hemorrhage type Qualified Code(s): K92.2 - Gastrointestinal hemorrhage, unspecified (2) Pneumonia SNOMED Code(s): 099496771 Code(s): J18.9 - PNEUMONIA, UNSPECIFIED ORGANISM Status: Acute Priority: High Current Visit: Yes Qualifiers: Laterality: right (3) Respiratory failure SNOMED Code(s): 755353262 Code(s): J96.90 - RESPIRATORY FAILURE, UNSP, UNSP W HYPOXIA OR HYPERCAPNIA Status: Acute Priority: Medium Current Visit: Yes Qualifiers: Chronicity: acute Respiratory failure complication: hypoxia and hypercapnia Qualified Code(s): J96.01 - Acute respiratory failure with hypoxia; J96.02 - Acute respiratory failure with hypercapnia (4) COPD (chronic obstructive pulmonary disease) SNOMED Code(s): 09732100 Code(s): J44.9 - CHRONIC OBSTRUCTIVE PULMONARY DISEASE, UNSPECIFIED Status: Acute Priority: Medium Current Visit: No Qualifiers: COPD type: unspecified COPD Qualified Code(s): J44.9 - Chronic obstructive pulmonary disease, unspecified - Problem List Review Problem List Initiated/Reviewed/Updated: Yes - My Orders Last 24 Hours: My Active Orders 10/11/20 16:14 Blood Culture x2 Reflex Set [OM.PC] Stat 10/11/20 17:02 CULTURE BLOOD [BC] Stat 10/11/20 17:06 CULTURE BLOOD [BC] Stat 10/11/20 18:13 Patient Status [ADT] Routine Intake and Output [RC] 06,18 Oxygen Therapy [RC] PRN Up ad Davina [RC] 08,20 VTE/DVT Education [RC] .PRN Vital Signs [RC] 02,06,10,14,18,22 Acetaminophen [TylenoL] 650 mg PO Q4H PRN Acetaminophen/HYDROcodone [Dodge 325-5 MG] 1 tab PO Q4H PRN Albuterol [Proventil Neb Soln] 2.5 mg NEB Q2H PRN Albuterol/Ipratropium [DuoNeb 3.0-0.5 MG/3 ML] 3 ml NEB Q4H PRN Docusate Sodium [Colace] 100 mg PO BID PRN Ondansetron [Zofran ODT] 4 mg PO Q4H PRN VTE Pharmacological Contraindications [AST] Per Unit Routine Resuscitation Status Routine 10/11/20 18:14 Notify Provider Vital Signs [RC] .PRN 10/11/20 18:16 Sequential Compression Device [OM.PC] Per Unit Routine 10/11/20 18:18 Antiembolic Devices [RC] 08,20 RT Aerosol Therapy [RC] ,10/11/20 18:23 Dietary Supplements [RC] ,10/11/20 19:15 Pantoprazole [ProTONIX IV] 40 mg Sodium Chloride 0.9% [Normal Saline] 100 ml IV .CONTINUOUS 10/11/20 20:00 Budesonide [Pulmicort] 0.5 mg INH BIDRT carvediloL [Coreg] 3.125 mg PO BID 10/11/20 22:43 Benzonatate [Tessalon Perles] 100 mg PO TID PRN 10/12/20 00:00 Piperacillin/Tazobactam [Zosyn] 3.375 gm Sodium Chloride 0.9% [Normal Saline] 100 ml IV Q8H 10/12/20 08:00 Magnesium Oxide 400 mg PO DAILY Potassium Chloride [Klor-Con 10] 10 meq PO DAILY Sodium Chloride 0.9% with KCl [Normal Saline with 40 mEq KCl] 1,000 ml IV ASDIRECTED atorvaSTATin [Lipitor] 40 mg PO DAILY 10/12/20 13:04 Antiembolic Devices [RC] PER UNIT ROUTINE SCD [Sequential Compression Device] [OM.PC] Routine 10/12/20 16:23 BLOOD GAS ARTERIAL [BG] Routine HEMOGLOBIN/HEMATOCRIT,HH [HEME] Routine 10/13/20 05:11 TYPE AND SCREEN [BBK] AM will recheck hemglobin and hematacrit, blood gases. give solu medrol 125 mg IVP - Assessment Assessment:: will continue antibiotics, encourage nebulizers. Watch for GI bleeding. Hemoglobin did drop one point since yesterday, but no new bleeding. Continues to have blood in the sputum. Patient is a daily drinker of alcohol, probably etiology of gastritis, gastric ulcer, possibility of neoplasm . Continue to hold blood thinner. Arrange for transfer to [place] when a bed is available. Needs pulmonoloy and GI/EGD 16:34 call to [place] one call. continue to be holding and not accepting patients. - Plan Plan:: transfer to [facility], when bed is available, 16:34 will continue treatment. stable, check hemoglobin, gases, refuses bipap still. solu medrol 125 mg IVP
[2020-10-12] MEDS ORDERED: methylPREDNISolone Sodium Succinate 125 MG/2 ML SDV IVPUSH ONE (16:35)
[2020-10-12 17:04] LABS: BASE EXCESS ARTERIAL 7 mmol/L ((-2)-(+3)); BICARBONATE,ARTERIAL 32 mmol/L (21-28); PCO2 ARTERIAL 51 mmHG (35-48); PO2 ARTERIAL 62 mmHG (83-108)
[2020-10-12] MEDS ORDERED: diphenhydrAMINE 25 MG Cap PO ONE (17:13)
[2020-10-12] MEDS ORDERED: Furosemide 40 MG/4 ML VIAL IVPUSH ONE (17:13)
--- NOTE | 2020-10-12 17:18 | PCM.SN.2 ---
- Free Text/Narrative Note: Po2 62 and holding on his pCO2 at 51. hemoglobin dropped to 7.8. Will give two units red blood cells. premedicate with benadryl 25 g PO, tylenol 650 mg Po, solu medrol 125 mg IVP and lasix 40 mg IVP
[2020-10-12] MEDS: Acetaminophen 325 MG Tab PO PRN (17:45)
[2020-10-13] MEDS: Pantoprazole 40 MG in Sodium Chloride 0.9% 100 ML IV SCH ×2 (04:49→09:58)
[2020-10-13] MEDS: Budesonide 0.5 MG/2 ML Neb Susp INH SCH (06:30)
[2020-10-13] MEDS ORDERED: Magnesium Oxide 400 MG Tab PO ONE (08:31)
[2020-10-13 08:48] LABS: ANION GAP 9.5 mmol/L (5-15); CHLORIDE,CL 98 mmol/L (98-107); SODIUM,NA 137 mmol/L (136-145)
[2020-10-13] MEDS ORDERED: predniSONE 20 MG Tab PO ONE (09:08)
[2020-10-13] MEDS: Piperacillin/Tazobactam 3.375 GM in Sodium Chloride 0.9% 100 ML IV SCH (09:13)
[2020-10-13] MEDS: Albuterol/Ipratropium 3.0-0.5 MG/3 ML Neb Soln NEB PRN (09:13)
[2020-10-13] MEDS: Carvedilol 3.125 MG Tab PO SCH (09:13)
[2020-10-13] MEDS: Potassium Chloride 10 MEQ Tab.ER PO SCH (09:14)
[2020-10-13] MEDS: Magnesium Oxide 400 MG Tab PO SCH (09:14)
[2020-10-13] MEDS: atorvaSTATin 40 MG Tab PO SCH (09:14)
--- NOTE | 2020-10-13 09:23 | CR ---
[id number] RAD/RAD Chest PA And Lateral EXAM: RAD Chest PA And Lateral CLINICAL DATA: PNEUMONIA COMPARISON: CORRELATION IS MADE WITH OCTOBER 11, 2020 FINDINGS: An extensive right-sided infiltrate is seen The left lung is overall clear There is minimal pleural reaction on the right Coronary artery stents are seen The cardiac silhouette is stable IMPRESSION: PERSISTENT EXTENSIVE RIGHT-SIDED INFILTRATES DIFFERENTIAL DIAGNOSIS INCLUDES PNEUMONIA VERSUS ATYPICAL MALIGNANCY Adolfo Mendoza MD 10/13/20 0922 Thank you for allowing us to participate in the care of your patient.
--- NOTE | 2020-10-13 09:43 | PCM.DCSUM1 ---
Discharge Summary - Hospital Course Free Text/Narrative:: Patient was admitted 10/11 for acute respiratory failure with hypoxemia, gi bleeding, right pneumonia. Blood thinners were held, cultures drawn and are negative thus far. Hemoglobin downtrended and two units of PRBC given. Vitals stabliized. On 3-5 liters of O2 chronicially and still on this with decreased work of breathing. No further stools, but continued sputum with gross blood. Receiving IV antibitoics, recieved IV potassium and oral magnesium replacement. Did receive IVP protonix and has been on a drip since. Needs EGD and bronchoscopy to rule out lesion in lung that is source of bleeding and causing stools to be positive due to swallowed blood. History of regular alcohol use, needs EGD to rule out gastric source also. Needs pulmonology consult, Has been stable for two days with above treatments as no beds available. Bed is now francesca ilable for patient to see specialists. HPI Initial Comments: see above Diagnosis: Stroke: No Modified [place] Scale: No Symptoms at All Modified [place] Scale Score: 0 - Discharge Data Discharge Date: 10/13/20 (pm transfer) Discharge Disposition: DC/Tfer to [facility] 02 Condition: Stable - Referral to Home Health Primary Care Physician: Palma Benjamin MD - Discharge Diagnosis/Problem(s) (1) GI bleeding SNOMED Code(s): 96305384 ICD Code: K92.2 - GASTROINTESTINAL HEMORRHAGE, UNSPECIFIED Status: Acute Priority: High Current Visit: Yes Qualifiers: GI bleed type/associated pathology: unspecified gastrointestinal hemorrhage type Qualified Code(s): K92.2 - Gastrointestinal hemorrhage, unspecified (2) Pneumonia SNOMED Code(s): 529798924 ICD Code: J18.9 - PNEUMONIA, UNSPECIFIED ORGANISM Status: Acute Priority: High Current Visit: Yes Qualifiers: Pneumonia type: due to unspecified organism Laterality: right (3) Respiratory failure SNOMED Code(s): 493524150 ICD Code: J96.90 - RESPIRATORY FAILURE, UNSP, UNSP W HYPOXIA OR HYPERCAPNIA Status: Chronic Priority: Medium Current Visit: Yes Qualifiers: Chronicity: acute Respiratory failure complication: hypoxia and hypercapnia Qualified Code(s): J96.01 - Acute respiratory failure with hypoxia; J96.02 - Acute respiratory failure with hypercapnia (4) COPD (chronic obstructive pulmonary disease) SNOMED Code(s): 93498080 ICD Code: J44.9 - CHRONIC OBSTRUCTIVE PULMONARY DISEASE, UNSPECIFIED Status: Acute Priority: Medium Current Visit: No Qualifiers: COPD type: unspecified COPD Qualified Code(s): J44.9 - Chronic obstructive pulmonary disease, unspecified - Patient Summary/Data Labs Pending at D/C: blood cultures pending. thus far negative Recommended Follow-up Testing/Procedures: needs egd, bronchoscopy, continues antibiotics, determination of resuming blood thinners. Possible vascular consult for grafts with dilatation Planned Operative Procedure(s) after DC: EGD and bronchoscopy on 10/14/2020 Hospital Course: Patient was admitted, hemoglobin watched, protonix given, cultures obtained and antibiotics started. Improved with antibiotics, steroids, lasix and blood transfusion. Nebulizers helping but lung x-ray not improving. VSS, continues to have an blood in the sputum . Needs specialist care, transfer arranged at soonest possible time for bed availability - Patient Instructions Diet: Usual Diet as Tolerated (NPO at midnight) Activity: As Tolerated, Cough & Deep Breathe - Discharge Plan *PRESCRIPTION DRUG MONITORING PROGRAM REVIEWED*: Not Applicable *COPY OF PRESCRIPTION DRUG MONITORING REPORT IN PATIENT BOBBY: Not Applicable Home Medications: Home Meds Warfarin Sodium [Jantoven] 5 mg PO ASDIRECTED 03/11/18 [History] Nitroglycerin [Nitrostat] 0.4 mg SL ASDIRECTED PRN 04/03/18 [History] Acetaminophen 325 - 650 mg PO Q4H PRN 10/11/20 [History] Albuterol/Ipratropium [Combivent Respimat] 1 puff IH QID 10/11/20 [History] Bumetanide [Bumex] 1 mg PO DAILY 10/11/20 [History] Cholecalciferol (Vitamin D3) [Vitamin D3] 1,000 unit PO DAILY 10/11/20 [History] Clopidogrel Bisulfate [Plavix] 75 mg PO DAILY 10/11/20 [History] Pantoprazole Sodium [Protonix] 40 mg PO DAILY 10/11/20 [History] Acetaminophen [Tylenol] 650 mg PO Q4H PRN tablet 10/13/20 [Rx] Albuterol [Proventil Neb Soln] 2.5 mg NEB Q2H PRN neb 10/13/20 [Rx] Albuterol/Ipratropium [DuoNeb 3.0-0.5 MG/3 ML] 3 ml NEB Q4H PRN neb 10/13/20 [Rx] Budesonide [Pulmicort] 0.5 mg INH BIDRT neb 10/13/20 [Rx] Docusate Sodium [Colace] 100 mg PO BID PRN cap 10/13/20 [Rx] Magnesium Oxide 400 mg PO DAILY tablet 10/13/20 [Rx] Potassium Chloride [Klor-Con 10] 10 meq PO DAILY tab.er 10/13/20 [Rx] atorvaSTATin [Lipitor] 40 mg PO DAILY tablet 10/13/20 [Rx] carvediloL [Coreg] 3.125 mg PO BID tablet 10/13/20 [Rx] Oxygen Therapy Mode: Nasal Cannula Oxygen Flow Rate (L/min): 3 Forms: ED Department Discharge Referrals: Palma Benjamin MD [Primary Care Provider] - - Discharge Summary/Plan Comment DC Time >30 min.: No Discharge Summary/Plan Comment: transfer to [facility] this afternoon for further cares, Dr. Zhang accepts - Patient Data Vitals - Most Recent: Last Vital Signs Temp 36.5 C 10/13/20 06:00 Pulse 74 10/13/20 09:13 Resp 23 H 10/13/20 06:00 BP 133/70 10/13/20 09:13 Pulse Ox 91 L 10/13/20 06:00 Weight - Most Recent: 73.028 kg I&O - Last 24 hours: Intake & Output 10/12/20 10/13/20 10/13/20 22:59 06:59 14:59 Intake Total 1610 1430 Output Total 150 1500 Balance 1460 -70 Lab Results - Last 24 hrs: Laboratory Results - last 24 hr 10/12/20 10/12/20 10/12/20 Range/Units 06:50 16:43 16:50 WBC (4.0-10.0) x10^3/uL RBC (4.5-6.0) x10^6/uL Hgb 7.8 L (14.0-18.0) g/dL Hct 23.9 L (40.0-52.0) % MCV (78.0-93.0) fL MCH (26.0-32.0) pg MCHC (32.0-36.0) g/dL RDW Coeff of Neel (10.0-15.0) % Plt Count (130-400) x10^3/uL ABG pH 7.40 (7.35-7.45) pH ABG pCO2 51 H (35-48) mmHG ABG pO2 62 L (83-108) mmHG ABG HCO3 32 H (21-28) mmol/L ABG Total CO2 32 H (22-29) mmol/L ABG O2 Content 91 L (94-98) % ABG Base Excess 7 H ((-2)-(+3)) mmol/L FiO2 0.36 Sodium (136-145) mmol/L Potassium (3.5-5.1) mmol/L Chloride (98-107) mmol/L Carbon Dioxide (21-32) mmol/L Anion Gap (5-15) mmol/L BUN (7-18) mg/dL Creatinine (0.70-1.30) mg/dL Est Cr Clr Drug Dosing mL/min Estimated GFR (MDRD) Glucose (70-99) mg/dL Calcium (8.5-10.1) mg/dL Magnesium (1.8-2.4) mg/dL Blood Type A POSITIVE Gel Antibody Screen Negative Crossmatch See Detail 10/13/20 10/13/20 10/13/20 Range/Units 06:15 06:15 06:15 WBC 3.9 L (4.0-10.0) x10^3/uL RBC 3.49 L (4.5-6.0) x10^6/uL Hgb 10.0 L D (14.0-18.0) g/dL Hct 30.4 L (40.0-52.0) % MCV 87.1 D (78.0-93.0) fL MCH 28.7 (26.0-32.0) pg MCHC 32.9 (32.0-36.0) g/dL RDW Coeff of Neel 16.7 H (10.0-15.0) % Plt Count 237 (130-400) x10^3/uL ABG pH (7.35-7.45) pH ABG pCO2 (35-48) mmHG ABG pO2 (83-108) mmHG ABG HCO3 (21-28) mmol/L ABG Total CO2 (22-29) mmol/L ABG O2 Content (94-98) % ABG Base Excess ((-2)-(+3)) mmol/L FiO2 Sodium 137 (136-145) mmol/L Potassium 3.5 (3.5-5.1) mmol/L Chloride 98 (98-107) mmol/L Carbon Dioxide 33 H (21-32) mmol/L Anion Gap 9.5 (5-15) mmol/L BUN 12 (7-18) mg/dL Creatinine 1.0 (0.70-1.30) mg/dL Est Cr Clr Drug Dosing 80.13 mL/min Estimated GFR (MDRD) > 60 Glucose 166 H (70-99) mg/dL Calcium 7.9 L (8.5-10.1) mg/dL Magnesium 1.6 L (1.8-2.4) mg/dL Blood Type Gel Antibody Screen Crossmatch JAMAAL Results - Last 24 hrs: Microbiology 10/11/20 17:06 Aerobic Blood Culture - Preliminary Blood - Venous - Lab Draw NO GROWTH AFTER 1 DAY Anaerobic Blood Culture - Preliminary NO GROWTH AFTER 1 DAY 10/11/20 17:02 Aerobic Blood Culture - Preliminary Blood - Venous NO GROWTH AFTER 1 DAY Anaerobic Blood Culture - Final Med Orders - Current: Current Medications Acetaminophen (Acetaminophen 325 Mg Tab) 650 mg PO Q4H PRN PRN Reason: Pain (Mild 1-3)/fever Last Admin: 10/12/20 17:45 Dose: 650 mg Documented by: Hydrocodone Bitart/Acetaminophen (Acetaminophen/Hydrocodone 325-5 Mg Tab) 1 tab PO Q4H PRN PRN Reason: Pain (moderate 4-6) Albuterol (Albuterol 0.083% 2.5 Mg/3 Ml Neb Soln) 2.5 mg NEB Q2H PRN PRN Reason: Dyspnea Last Admin: 10/12/20 10:28 Dose: 2.5 mg Documented by: Albuterol/Ipratropium (Albuterol/Ipratropium 3.0-0.5 Mg/3 Ml Neb Soln) 3 ml NEB Q4H PRN PRN Reason: dyspnea/wheezing Last Admin: 10/13/20 09:13 Dose: 3 ml Documented by: Atorvastatin Calcium (Atorvastatin 40 Mg Tab) 40 mg PO DAILY GONZALEZ Last Admin: 10/13/20 09:14 Dose: 40 mg Documented by: Benzonatate (Benzonatate 100 Mg Cap) 100 mg PO TID PRN PRN Reason: Cough Last Admin: 10/12/20 23:45 Dose: 100 mg Documented by: Budesonide (Budesonide 0.5 Mg/2 Ml Neb Susp) 0.5 mg INH BIDRT GONZALEZ Last Admin: 10/13/20 06:30 Dose: 0.5 mg Documented by: Carvedilol (Carvedilol 3.125 Mg Tab) 3.125 mg PO BID GONZALEZ Last Admin: 10/13/20 09:13 Dose: 3.125 mg Documented by: Docusate Sodium (Docusate Sodium 100 Mg Cap) 100 mg PO BID PRN PRN Reason: Constipation Piperacillin Sod/Tazobactam (Sod 3.375 gm/ Sodium Chloride) 100 mls @ 25 mls/hr IV Q8H GONZALEZ Last Admin: 10/13/20 09:13 Dose: 25 mls/hr Documented by: Pantoprazole Sodium 40 mg/ (Sodium Chloride) 100 mls @ 20 mls/hr IV .CONTINUOUS [facility] Last Admin: 10/13/20 04:49 Dose: 20 mls/hr Documented by: Magnesium Oxide (Magnesium Oxide 400 Mg Tab) 400 mg PO DAILY [facility] Last Admin: 10/13/20 09:14 Dose: 400 mg Documented by: Ondansetron HCl (Ondansetron 4 Mg Tab.Dis) 4 mg PO Q4H PRN PRN Reason: nausea, able to take PO Potassium Chloride (Potassium Chloride 10 Meq Tab.Er) 10 meq PO DAILY [facility] Last Admin: 10/13/20 09:14 Dose: 10 meq Documented by: Discontinued Medications Diphenhydramine HCl (Diphenhydramine 25 Mg Cap) 25 mg PO ONETIME ONE Stop: 10/12/20 17:14 Last Admin: 10/12/20 18:49 Dose: 25 mg Documented by: Furosemide (Furosemide 40 Mg/4 Ml Vial) 40 mg IVPUSH NOW ONE Stop: 10/12/20 17:14 Last Admin: 10/12/20 18:41 Dose: 40 mg Documented by: Sodium Chloride (Normal Saline) 1,000 mls @ 999 mls/hr IV ONETIME ONE Stop: 10/11/20 14:43 Last Admin: 10/11/20 14:11 Dose: 999 mls/hr Documented by: Piperacillin Sod/Tazobactam (Sod 4.5 gm/ Sodium Chloride) 100 mls @ 200 mls/hr IV STAT ONE Stop: 10/11/20 16:43 Last Admin: 10/11/20 17:14 Dose: 200 mls/hr Documented by: Piperacillin Sod/Tazobactam (Sod 4.5 gm/ Sodium Chloride) 100 mls @ 25 mls/hr IV Q8H [facility] Last Admin: 10/11/20 19:08 Dose: Not Given Documented by: Potassium Chloride/Sodium Chloride (Normal Saline With 40 Meq Kcl) 1,000 mls @ 200 mls/hr IV ASDIRECTED [facility] Last Infusion: 10/13/20 01:00 Dose: 100 mls/hr Documented by: Iopamidol (Iopamidol 612 Mg/Ml 100 Ml Bottle) 100 ml IVPUSH ONETIME ONE Stop: 10/11/20 14:56 Last Admin: 10/11/20 15:00 Dose: 100 ml Documented by: Magnesium Oxide (Magnesium Oxide 400 Mg Tab) 800 mg PO ONETIME ONE Stop: 10/13/20 08:32 Last Admin: 10/13/20 09:14 Dose: 800 mg Documented by: Methylprednisolone Sodium Succinate (Methylprednisolone Sodium Succinate 125 Mg/2 Ml Sdv) 125 mg IVPUSH ONETIME ONE Stop: 10/12/20 16:36 Last Admin: 10/12/20 17:45 Dose: 125 mg Documented by: Pantoprazole Sodium (Pantoprazole 40 Mg Vial) 80 mg IVPUSH ONETIME ONE Stop: 10/11/20 13:44 Last Admin: 10/11/20 14:11 Dose: 80 mg Documented by: Prednisone (Prednisone 20 Mg Tab) 40 mg PO ONETIME ONE Stop: 10/13/20 09:09 *Q Meaningful Use (DIS) - VTE *Q VTE Pharmacological Contraindications *Q: Active Hemorrhage
[2020-10-13] MEDS: Benzonatate 100 MG Cap PO PRN (09:58)
== END 2020-10-13 12:40 | disposition short-term general hospital (02) ==
LOC: VM.ED 13:24 → VM.MS 17:24
PROVIDERS: ADMIT Physician Assistant; ATTEND Physician Assistant
DX: J96.21 Acute and chronic respiratory failure with hypoxia (principal); J18.9 Pneumonia, unspecified organism; K92.2 Gastrointestinal hemorrhage, unspecified; Z99.81 Dependence on supplemental oxygen; J44.9 Chronic obstructive pulmonary disease, unspecified; R04.2 Hemoptysis; Z79.01 Long term (current) use of anticoagulants; Z79.82 Long term (current) use of aspirin; Z87.891 Personal history of nicotine dependence; Z20.822 Contact with and (suspected) exposure to COVID-19
CPT/HCPCS: 36415; 36430; 36600; 71046; 71275; 74177; 80048; 82803; 83605; 83735; 84484; 85014; 85018; 85025; 85027; 86850; 86900; 86901; 86920; 86922; 87040; 87205; 93005; 94640; 96365; 96375; 99285-25; A9270-GY; C9113; G0328; J1940; J2543; J2930; J3480; J7030; J7512; J7613-GY; J7620-GY; P9016; Q9967; U0002

== ENCOUNTER 2021-05-23 10:38 | Emergency (ER) | payer MEDICARE, MEDICAID ==
[2021-05-23 11:40] LABS: CHLORIDE,CL 96 mmol/L (98-107); SODIUM,NA 132 mmol/L (136-145)
[2021-05-23 11:41] LABS: ANION GAP 6.8 mmol/L (5-15)
[2021-05-23] MEDS ORDERED: Sodium Chloride 0.9% 10 ML Syringe FLUSH PRN (11:42)
[2021-05-23] MEDS: Iopamidol 755 Mg/ML 100 ML Bottle IVPUSH ONE (12:55)
== END 2021-05-23 14:10 | disposition home or self-care (01) ==
LOC: VM.ED 10:38
DX: R07.89 Other chest pain (principal); J44.9 Chronic obstructive pulmonary disease, unspecified; I11.0 Hypertensive heart disease with heart failure; I50.9 Heart failure, unspecified; I48.91 Unspecified atrial fibrillation; K21.9 Gastro-esophageal reflux disease without esophagitis; Z95.1 Presence of aortocoronary bypass graft; Z79.01 Long term (current) use of anticoagulants; Z79.899 Other long term (current) drug therapy; Z20.822 Contact with and (suspected) exposure to COVID-19
CPT/HCPCS: 71275; 80053; 84484; 85025; 85379; 93005; 93010; 99284; 99285-25; Q9967; U0002

== ENCOUNTER 2021-06-14 12:05 | Observation (INO) | payer MEDICARE, MEDICAID ==
[2021-06-14] MEDS ORDERED: Sodium Chloride 0.9% 10 ML Syringe FLUSH PRN (12:09)
[2021-06-14] MEDS ORDERED: Ondansetron 4 MG/2 ML SDV IV ONE (12:26)
[2021-06-14] MEDS ORDERED: diphenhydrAMINE 50 MG/ML SDV IVPUSH ONE ×2 (12:26→14:48)
[2021-06-14] MEDS ORDERED: Pantoprazole 40 MG Vial IVPUSH ONE (12:26)
[2021-06-14] MEDS ORDERED: Morphine 2 MG/ML SYRINGE IVPUSH ONE (12:27)
[2021-06-14 12:41] LABS: PTT,PARTIAL THROMBOPLSTIN TIME 49.9 SEC (20.5-30.9)
[2021-06-14] MEDS: Sodium Chloride 0.9% 1,000 ML IV SCH ×2 (12:43→20:29)
[2021-06-14 12:51] LABS: ANION GAP 10.2 mmol/L (5-15); CHLORIDE,CL 89 mmol/L (98-107); SODIUM,NA 135 mmol/L (136-145)
[2021-06-14] MEDS ORDERED: Phytonadione 5 MG Tab PO ONE ×2 (13:02→13:23)
[2021-06-14] MEDS ORDERED: Potassium Chloride Riders 10 MEQ in Premix Bag 1 BAG IV ONE ×2 (13:15→15:27)
[2021-06-14] MEDS ORDERED: Doxycycline 100 MG Cap PO ONE (13:42)
[2021-06-14] MEDS ORDERED: Iopamidol 612 MG/ML 100 ML Bottle IVPUSH ONE (14:11)
[2021-06-14] MEDS ORDERED: Metoclopramide 10 MG/2 ML SDV IVPUSH ONE (14:48)
[2021-06-14] MEDS ORDERED: Acetaminophen 325 MG Tab PO PRN (15:15)
[2021-06-14] MEDS ORDERED: Ondansetron 4 MG/2 ML SDV IV PRN (15:15)
[2021-06-14] MEDS ORDERED: Albuterol HFA 18 Gm Inhaler INH PRN (15:22)
[2021-06-14] MEDS ORDERED: Albuterol/Ipratropium 3.0-0.5 MG/3 ML Neb Soln NEB PRN (15:22)
[2021-06-14] MEDS: Acetaminophen 325 MG Tab PO PRN (16:23)
[2021-06-14] MEDS ORDERED: HYDROmorphone 0.5 MG/0.5 ML Syringe IVPUSH STA (18:35)
[2021-06-14] MEDS ORDERED: Dexamethasone 4 MG/ML SDV IVPUSH SCH ×2 (20:00→21:00)
[2021-06-14] MEDS: Carvedilol 3.125 MG Tab PO SCH (20:27)
[2021-06-14] MEDS: Gabapentin 300 MG Cap PO SCH (20:27)
[2021-06-14] MEDS: Doxycycline 100 MG Cap PO SCH (20:28)
[2021-06-14] MEDS: Pantoprazole 40 MG in Sodium Chloride 0.9% 100 ML IV SCH (21:20)
[2021-06-15 06:58] LABS: CHLORIDE,CL 96 mmol/L (98-107); SODIUM,NA 136 mmol/L (136-145)
[2021-06-15 06:59] LABS: ANION GAP 8.9 mmol/L (5-15)
[2021-06-15 07:10] LABS: PTT,PARTIAL THROMBOPLSTIN TIME 31.7 SEC (20.5-30.9)
[2021-06-15] MEDS: Pantoprazole 40 MG in Sodium Chloride 0.9% 100 ML IV SCH ×3 (07:19→17:47)
[2021-06-15] MEDS: Acetaminophen 325 MG Tab PO PRN (07:20)
[2021-06-15] MEDS: Gabapentin 300 MG Cap PO SCH ×3 (08:07→20:25)
[2021-06-15] MEDS: Cholecalciferol (Vitamin D3) 25 MCG Tab PO SCH (08:07)
[2021-06-15] MEDS: Potassium Chloride 10 MEQ Tab.ER PO SCH (08:07)
[2021-06-15] MEDS: Bumetanide 1 MG Tab PO SCH (08:07)
[2021-06-15] MEDS: atorvaSTATin 40 MG Tab PO SCH (08:07)
[2021-06-15] MEDS: Doxycycline 100 MG Cap PO SCH ×2 (08:07→20:24)
[2021-06-15] MEDS: Magnesium Oxide 400 MG Tab PO SCH (08:07)
[2021-06-15] MEDS: Carvedilol 3.125 MG Tab PO SCH ×2 (08:08→20:24)
[2021-06-15] MEDS ORDERED: diphenhydrAMINE 50 MG/ML SDV IVPUSH ONE (08:45)
[2021-06-15] MEDS ORDERED: Haloperidol Lactate 5 MG/ML SDV IV ONE (08:45)
[2021-06-15] MEDS ORDERED: Prochlorperazine 10 MG/2 ML SDV IV ONE (09:04)
[2021-06-15] MEDS ORDERED: Ketorolac 30 MG/ML SDV IVPUSH ONE (09:30)
[2021-06-15] MEDS ORDERED: Amitriptyline 10 MG Tab PO ONE (13:26)
[2021-06-15] MEDS ORDERED: Gabapentin 300 MG Cap PO SCH (13:30)
[2021-06-16 07:12] LABS: CHLORIDE,CL 88 mmol/L (98-107); SODIUM,NA 132 mmol/L (136-145)
[2021-06-16 07:13] LABS: PTT,PARTIAL THROMBOPLSTIN TIME 24.6 SEC (20.5-30.9)
[2021-06-16] MEDS: atorvaSTATin 40 MG Tab PO SCH (07:28)
[2021-06-16] MEDS: Bumetanide 1 MG Tab PO SCH (07:28)
[2021-06-16] MEDS: Gabapentin 300 MG Cap PO SCH ×2 (07:29→11:52)
[2021-06-16] MEDS: Potassium Chloride 10 MEQ Tab.ER PO SCH (07:29)
[2021-06-16] MEDS: Doxycycline 100 MG Cap PO SCH (07:29)
[2021-06-16] MEDS: Magnesium Oxide 400 MG Tab PO SCH (07:29)
[2021-06-16] MEDS: Carvedilol 3.125 MG Tab PO SCH (07:29)
[2021-06-16] MEDS: Cholecalciferol (Vitamin D3) 25 MCG Tab PO SCH (07:29)
[2021-06-16 07:30] LABS: ANION GAP 8.4 mmol/L (5-15)
[2021-06-16] MEDS ORDERED: Magnesium Oxide 400 MG Tab PO SCH (08:00)
[2021-06-16] MEDS ORDERED: Clopidogrel 75 MG Tab PO SCH (08:00)
[2021-06-16] MEDS: Potassium Bicarbonate/Cit Ac 10 MEQ Effervescent Tab PO SCH ×5 (08:27→15:36)
[2021-06-16] MEDS ORDERED: Magnesium Sulfate/Water 4 GM in Premix Bag 1 BAG IV ONE (08:45)
[2021-06-16] MEDS ORDERED: Warfarin 5 MG Tab PO SCH (13:00)
[2021-06-16 15:19] LABS: ANION GAP 4.9 mmol/L (5-15); CHLORIDE,CL 88 mmol/L (98-107); SODIUM,NA 132 mmol/L (136-145)
[2021-06-16] MEDS ORDERED: Take Home: Doxycycline 100 MG Tab, 4 Tab Pack PO ONE (16:35)
[2021-06-16] MEDS ORDERED: Pantoprazole 40 MG Tab.CR PO SCH (17:00)
[2021-06-20] MEDS ORDERED: Warfarin 2.5 MG Tab PO SCH (08:00)
== END 2021-06-16 17:17 | disposition home or self-care (01) ==
LOC: VM.ED 12:05 → VM.MS 14:56
PROVIDERS: ADMIT Nurse Practitioner Family; ATTEND Nurse Practitioner Family
DX: K92.0 Hematemesis (principal); R51.9 Headache, unspecified; J18.9 Pneumonia, unspecified organism; J44.0 Chronic obstructive pulmonary disease with (acute) lower respiratory infection; E87.6 Hypokalemia; I25.10 Atherosclerotic heart disease of native coronary artery without angina pectoris; I11.0 Hypertensive heart disease with heart failure; I50.9 Heart failure, unspecified; I48.0 Paroxysmal atrial fibrillation; J96.11 Chronic respiratory failure with hypoxia; E83.42 Hypomagnesemia; Z87.891 Personal history of nicotine dependence; Z20.822 Contact with and (suspected) exposure to COVID-19; Z79.01 Long term (current) use of anticoagulants; Z79.02 Long term (current) use of antithrombotics/antiplatelets; Z79.899 Other long term (current) drug therapy
CPT/HCPCS: 36415; 70450; 71046; 71260; 80048; 80053; 80307; 81001; 83605; 83690; 83735; 84145; 84484; 85014; 85018; 85025; 85610; 85730; 86140; 93005; 93010; 94760; 96365; 96375; 96376; 99217; 99220; 99225; 99285-25; A9270-GY; C9113; G0378; J1100; J1170; J1200; J1790; J1885; J2270; J2405; J2765; J3475; J3480; J3490; J7030; Q9967; U0002

== ENCOUNTER 2024-04-22 10:46 | Inpatient (IN) | payer MEDICARE, MEDICAID ==
[2024-04-22] MEDS ORDERED: Sodium Chloride 0.9% 10 ML Syringe FLUSH PRN (11:01)
[2024-04-22] MEDS: Albuterol/Ipratropium 3.0-0.5 MG/3 ML Neb Soln NEB ONE (11:15)
[2024-04-22 11:16] LABS: BASOPHILS PERCENT AUTO 0.4 % (0.2-1.2); EOSINOPHILS ABSOLUTE AUTO 0.1 x10^3/uL (0.0-0.5); EOSINOPHILS PERCENT AUTO 1.2 % (0.0-4.0); HEMATOCRIT 44.6 % (40.0-52.0); HEMOGLOBIN 14.9 g/dL (14.0-18.0); IMMATURE GRAN ABSOLUTE AUTO 0.01 x10^3/uL (0.00-0.07); LYMPHOCYTES ABSOLUTE AUTO 0.3 x10^3/uL (1.0-4.8); LYMPHOCYTES PERCENT AUTO 5.6 % (25.0-50.0); MEAN CORPUSCULAR HEMOGLOBIN 30.1 pg (26.0-32.0); MEAN CORPUSCULAR HGB CONC 33.4 g/dL (32.0-36.0); MEAN CORPUSCULAR VOLUME 90.1 fL (78.0-93.0); MONOCYTES ABSOLUTE AUTO 0.7 x10^3/uL (0.0-0.8); MONOCYTES PERCENT AUTO 12.8 % (2.0-11.0); NEUTROPHILS ABSOLUTE AUTO 4.6 x10^3/uL (1.8-7.7); NEUTROPHILS PERCENT AUTO 79.8 % (50.0-80.0); PLATELET COUNT,PLT 120 x10^3/uL (130-400); RED BLOOD CELL COUNT 4.95 x10^6/uL (4.5-6.0); WHITE BLOOD CELL COUNT,WBC 5.7 x10^3/uL (4.0-10.0)
[2024-04-22 11:38] LABS: INR 1.1 (0.9-1.1); PROTHROMBIN TIME 11.2 SEC (8.9-11.5)
[2024-04-22 11:48] LABS: A/G RATIO 0.88; ALANINE AMINOTRANSFERASE,ALT 28 U/L (16-63); ALBUMIN 3.6 g/dL (3.4-5.0); ALKALINE PHOSPHATASE 77 U/L (46-116); ASPARTATE AMNIOTRANSFERASE,AST 47 U/L (15-37); BILIRUBIN TOTAL 0.5 mg/dL (0.2-1.0); BLOOD UREA NITROGEN,BUN 12 mg/dL (7-18); C-REACTIVE PROTEIN 6.61 mg/dL (<=0.50); CALCIUM 8.5 mg/dL (8.5-10.1); CARBON DIOXIDE,CO2 30 mmol/L (21-32); CHLORIDE,CL 87 mmol/L (98-107); CREATINE KINASE,CK 228 U/L (39-308); GLUCOSE RANDOM 110 mg/dL (70-99); POTASSIUM,K 4.1 mmol/L (3.5-5.1); PROTEIN TOTAL,TP 7.7 g/dL (6.4-8.2)
[2024-04-22 11:49] LABS: ANION GAP 12.1 mmol/L (5-15); ESTIMATED GFR 84 mL/min (>=60)
[2024-04-22 11:50] LABS: SODIUM,NA 125 mmol/L (136-145)
[2024-04-22] MEDS: Iopamidol 755 Mg/ML 100 ML Bottle IVPUSH ONE (12:46)
[2024-04-22] MEDS: Dexamethasone 4 MG/ML SDV IVPUSH ONE (13:28)
[2024-04-22] MEDS: Azithromycin 500 MG in Sodium Chloride 0.9% 250 ML IV ONE (13:29)
[2024-04-22] MEDS: cefTRIAXone 2 GM Vial IVPUSH ONE (13:29)
[2024-04-22] MEDS: Sodium Chloride 0.9% 1,000 ML IV ONE (13:39)
[2024-04-22] MEDS ORDERED: Nitroglycerin 0.4 MG Tab.SL SL PRN (17:14)
[2024-04-22] MEDS ORDERED: Acetaminophen 325 MG Tab PO PRN (17:14)
[2024-04-22] MEDS ORDERED: Albuterol/Ipratropium 3.0-0.5 MG/3 ML Neb Soln NEB PRN (17:14)
[2024-04-22] MEDS: Carvedilol 3.125 MG Tab PO SCH (18:00)
[2024-04-22] MEDS ORDERED: Sodium Chloride 3% 500 ML IV SCH (18:15)
[2024-04-22] MEDS: methylPREDNISolone Sodium Succinate 40 MG/1 ML SDV IVPUSH SCH (18:24)
[2024-04-22] MEDS ORDERED: Sodium Chloride 3% 250 ML IV SCH ×2 (19:00→21:00)
[2024-04-22 21:04] LABS: CALCIUM 8.1 mg/dL (8.5-10.1); CREATININE 0.9 mg/dL (0.70-1.30); EST CRCL DRUG DOSING (CG) 74.02 mL/min; POTASSIUM,K 4.3 mmol/L (3.5-5.1)
[2024-04-22 21:06] LABS: ANION GAP 8.3 mmol/L (5-15)
[2024-04-22] MEDS: Sodium Chloride 0.9% 1,000 ML IV SCH (23:26)
[2024-04-23 07:18] LABS: BASOPHILS PERCENT AUTO 0.4 % (0.2-1.2); EOSINOPHILS PERCENT AUTO 0.4 % (0.0-4.0); HEMATOCRIT 44.3 % (40.0-52.0); HEMOGLOBIN 14.9 g/dL (14.0-18.0); IMMATURE GRAN ABSOLUTE AUTO 0.01 x10^3/uL (0.00-0.07); LYMPHOCYTES ABSOLUTE AUTO 0.4 x10^3/uL (1.0-4.8); LYMPHOCYTES PERCENT AUTO 14.3 % (25.0-50.0); MEAN CORPUSCULAR HEMOGLOBIN 30.4 pg (26.0-32.0); MEAN CORPUSCULAR HGB CONC 33.6 g/dL (32.0-36.0); MEAN CORPUSCULAR VOLUME 90.4 fL (78.0-93.0); MONOCYTES ABSOLUTE AUTO 0.2 x10^3/uL (0.0-0.8); MONOCYTES PERCENT AUTO 8.3 % (2.0-11.0); NEUTROPHILS ABSOLUTE AUTO 1.9 x10^3/uL (1.8-7.7); NEUTROPHILS PERCENT AUTO 76.2 % (50.0-80.0); WHITE BLOOD CELL COUNT,WBC 2.5 x10^3/uL (4.0-10.0)
[2024-04-23 07:26] LABS: PLATELET COUNT,PLT 106 x10^3/uL (130-400)
[2024-04-23 07:30] LABS: ANION GAP 8.5 mmol/L (5-15); CALCIUM 8.3 mg/dL (8.5-10.1); CREATININE 0.7 mg/dL (0.70-1.30); EST CRCL DRUG DOSING (CG) 95.17 mL/min; MAGNESIUM 1.7 mg/dL (1.8-2.4); POTASSIUM,K 4.5 mmol/L (3.5-5.1)
[2024-04-23] MEDS ORDERED: Potassium Chloride 10 MEQ Tab.ER PO SCH (09:00)
[2024-04-23] MEDS ORDERED: Non-Formulary Medication 1 Each (Umeclidinium Brm/Vilanterol Tr [Anoro Ellipta 62.5-25 Mcg PO SCH (09:00)
[2024-04-23] MEDS: Tiotropium BR/Olodaterol HCL 4 GM Inhalation Spray 2.5mcg/1 dose; 10 doses INH SCH (09:10)
[2024-04-23] MEDS: Albuterol 0.083% 2.5 MG/3 ML Neb Soln NEB SCH (09:13)
[2024-04-23] MEDS: atorvaSTATin 40 MG Tab PO SCH (09:26)
[2024-04-23] MEDS: cefTRIAXone 1 GM Vial IVPUSH SCH (09:27)
[2024-04-23] MEDS: Magnesium Oxide 400 MG Tab PO SCH (09:27)
[2024-04-23] MEDS: Cholecalciferol (Vitamin D3) 25 MCG Tab PO SCH (09:27)
[2024-04-23] MEDS: Magnesium Sulfate/Water Premix 2 GM in Premix Bag 1 BAG IV ONE (09:29)
[2024-04-23] MEDS: PERMETHRIN 5% TOP ONE (09:31)
[2024-04-23] MEDS: Triamcinolone Acetonide 0.1% Crm 15 GM Tube TOP SCH (12:45)
[2024-04-23] MEDS: Enoxaparin 40 MG/0.4 ML Syringe SUBCUT SCH (12:45)
[2024-04-23] MEDS: Azithromycin 250 MG Tab PO SCH (12:51)
[2024-04-24 06:50] LABS: BASOPHILS PERCENT AUTO 0.2 % (0.2-1.2); EOSINOPHILS PERCENT AUTO 0.2 % (0.0-4.0); HEMATOCRIT 42.2 % (40.0-52.0); HEMOGLOBIN 14.1 g/dL (14.0-18.0); IMMATURE GRAN ABSOLUTE AUTO 0.01 x10^3/uL (0.00-0.07); LYMPHOCYTES ABSOLUTE AUTO 0.5 x10^3/uL (1.0-4.8); MEAN CORPUSCULAR HEMOGLOBIN 30.7 pg (26.0-32.0); MEAN CORPUSCULAR HGB CONC 33.4 g/dL (32.0-36.0); MEAN CORPUSCULAR VOLUME 91.9 fL (78.0-93.0); MONOCYTES ABSOLUTE AUTO 0.4 x10^3/uL (0.0-0.8); MONOCYTES PERCENT AUTO 8.9 % (2.0-11.0); NEUTROPHILS ABSOLUTE AUTO 3.3 x10^3/uL (1.8-7.7); NEUTROPHILS PERCENT AUTO 78.5 % (50.0-80.0); PLATELET COUNT,PLT 131 x10^3/uL (130-400); RED BLOOD CELL COUNT 4.59 x10^6/uL (4.5-6.0); WHITE BLOOD CELL COUNT,WBC 4.3 x10^3/uL (4.0-10.0)
[2024-04-24 07:03] LABS: ANION GAP 6.5 mmol/L (5-15); CALCIUM 8.6 mg/dL (8.5-10.1); CREATININE 0.7 mg/dL (0.70-1.30); EST CRCL DRUG DOSING (CG) 95.78 mL/min; POTASSIUM,K 4.5 mmol/L (3.5-5.1)
[2024-04-24 18:56] VITALS: BP 140/88; PULSE 88
== END 2024-04-24 15:11 | disposition home or self-care (01) | DRG 189 ==
LOC: VM.ED 10:46 → VM.MS 14:35
PROVIDERS: ADMIT Physician Assistant; ATTEND Family Medicine
DX: J44.1 Chronic obstructive pulmonary disease with (acute) exacerbation (principal); J96.21 Acute and chronic respiratory failure with hypoxia; I11.0 Hypertensive heart disease with heart failure; J44.0 Chronic obstructive pulmonary disease with (acute) lower respiratory infection; I25.10 Atherosclerotic heart disease of native coronary artery without angina pectoris; I48.91 Unspecified atrial fibrillation; J44.9 Chronic obstructive pulmonary disease, unspecified; I13.0 Hypertensive heart and chronic kidney disease with heart failure and stage 1 through stage 4 chronic kidney disease, or unspecified chronic kidney disease; E87.1 Hypo-osmolality and hyponatremia; Z79.01 Long term (current) use of anticoagulants; I50.9 Heart failure, unspecified; K21.9 Gastro-esophageal reflux disease without esophagitis; E78.5 Hyperlipidemia, unspecified; E83.42 Hypomagnesemia; I48.0 Paroxysmal atrial fibrillation; N18.9 Chronic kidney disease, unspecified; E87.6 Hypokalemia; I27.20 Pulmonary hypertension, unspecified; Z95.1 Presence of aortocoronary bypass graft; Z95.5 Presence of coronary angioplasty implant and graft; Z72.0 Tobacco use; Z79.899 Other long term (current) drug therapy
CPT/HCPCS: 36415; 71045; 71275; 80048; 80053; 82550; 83605; 83735; 83880; 84484; 85025; 85379; 85610; 86140; 87040; 87428-QW; 94640; 94667; 94668; 94760; 97161-GP; 97165-GO; 97530-GP; 99284; 99285; A9270-GY; J0456; J0696; J1100; J1650; J2919; J3475; J7030; J7050; J7613-GY; J7620-GY; Q3014; Q9967